=== PATIENT | male | born 1955 | race Caucasian/White ===

== ENCOUNTER 2022-08-09 23:25 | Observation (INO) | payer MEDICARE, OTHER ==
[2022-08-09] MEDS ORDERED: SODIUM CHLORIDE 0.9% 500 ML 500 ML IV STA (23:45)
[2022-08-09] MEDS ORDERED: MORPHINE SULFATE 4 MG/ML SYRINGE IV STA (23:45)
[2022-08-09] MEDS ORDERED: ONDANSETRON 4 MG/2 ML VIAL IVP STA (23:45)
[2022-08-09] MEDS ORDERED: ONDANSETRON 4 MG/2 ML VIAL IVP PRN (23:45)
[2022-08-09] MEDS ORDERED: NALOXONE 0.4 MG/ML 1 ML VIAL IV PRN (23:45)
[2022-08-09] MEDS ORDERED: SODIUM CHLORIDE 0.9% 1,000 ML IV STA (23:45)
--- NOTE | 2022-08-09 23:45 | ED ---
Recheck HPI - General Chief Complaint: Fall Stated Complaint: Fractured Vertabrae Time Seen by Provider: 08/09/22 23:30 Source: patient, EMS, RN notes reviewed, old records reviewed Mode of arrival: EMS - History of Present Illness Initial Comments: This is a 66-year-old male presenting in transfer patient. Patient accepted in transfer for back pain chronic back pain with multiple recent visits for back pain. Patient did have imaging on this visit and found to have fracture thoracic spine fracture. Patient also has underlying concern for CVA with metastasis and likely cancer pain. MD Complaint: medication refill request, other (Pain control back pain) -: week(s) Returns Today for: persistent/worsening pain related to initial visit Symptoms Since Prior Visit: worsening pain Associated Symptoms: shortness of breath, malaise, nausea Treatments Prior to Arrival: Given Pain Meds on - Related Data Allergies Allergy/AdvReac Type Severity Reaction Status Date / Time No Known Allergies Allergy Verified 08/09/22 23:42 Review of Systems ROS Statement: Those systems with pertinent positive or pertinent negative responses have been documented in the HPI. ROS Other: All systems not noted in ROS Statement are negative. Past Medical History History of Any Multi-Drug Resistant Organisms: None Reported Past Psychological History: No Psychological Hx Reported Smoking Status: Current every day smoker Past Alcohol Use History: None Reported Past Drug Use History: None Reported General Exam General appearance: alert, in no apparent distress Head exam: Present: atraumatic, normocephalic, normal inspection Eye exam: Present: normal appearance, PERRL, EOMI. Absent: scleral icterus, conjunctival injection, periorbital swelling ENT exam: Present: normal exam, mucous membranes moist Neck exam: Present: normal inspection. Absent: tenderness, meningismus, lymphadenopathy Respiratory exam: Present: normal lung sounds bilaterally. Absent: respiratory distress, wheezes, rales, rhonchi, stridor Cardiovascular Exam: Present: regular rate, normal rhythm, normal heart sounds. Absent: systolic murmur, diastolic murmur, rubs, gallop, clicks GI/Abdominal exam: Present: soft, normal bowel sounds. Absent: distended, tenderness, guarding, rebound, rigid Extremities exam: Present: normal inspection, full ROM, normal capillary refill. Absent: tenderness, pedal edema, joint swelling, calf tenderness Back exam: Present: normal inspection Neurological exam: Present: alert, oriented X3, CN II-XII intact Psychiatric exam: Present: normal affect, normal mood Skin exam: Present: warm, dry, intact, normal color. Absent: rash Course Vital Signs 08/09/22 23:35 Temperature 97.7 F Pulse Rate 102 H Respiratory 18 Rate Blood Pressure 138/88 O2 Sat by Pulse 94 L Oximetry - Reevaluation(s) Reevaluation #1: 08/09/22 23:43 Medical records reviewed Reevaluation #2: 08/09/22 23:43 Patient's pain is controlled Reevaluation #3: 08/09/22 23:43 Patient informed results and questions answered Reevaluation #4: 08/09/22 23:44 Was pt. sent in by a medical professional or institution? @ -no Did you speak to anyone other than the patient for history? @ -no Did you review nursing and triage notes? @ -agree Were old charts reviewed? @ -no Differential Diagnosis? @ -prior EKG interpreted by me (3pts min.)? @ -yes X-rays interpreted by me (1pt min.)? @ -yes CT interpreted by me (1pt min.)? @ -no U/S interpreted by me (1pt. min.)? @ -no What testing was considered but not performed? (CT, X-rays, U/S, labs)? Why? @ -no What meds were considered but not given? Why? @ -no Did you discuss the management of the patient with other professionals? @ -no Did you reconcile home meds? @ -no Was smoking cessation discussed for >3mins.? @ -no Was critical care preformed (if so, how long)? @ -no Were there social determinants of health that impacted care today? How? (Homelessness, low income, unemployed, alcoholism, drug addiction, transportation, low edu. Level, literacy, decrease access to med. care, fci, rehab)? @ -no Was there de-escalation of care discussed even if they declined? (Discuss DNR or withdrawal of care, Hospice)? @ -no What co-morbidities impacted this encounter? (DM, HTN, Smoking, COPD, CAD, Canc er, CVA, Hep., AIDS, mental health diagnosis, sleep apnea, morbid obesity)? @ -none Was patient admitted / discharged? @ - Undiagnosed new problem with uncertain prognosis? @ -no Drug Therapy requiring intensive monitoring for toxicity (Heparin, Nitro, Insulin, Cardizem)? @ -no Were any procedures done? @ -no Diagnosis/symptom? @ - Acute, or Chronic, or Acute on Chronic? @ -no Uncomplicated (without systemic symptoms) or Complicated (systemic symptoms)? @ -uncomplicated Side effects of treatment? @ -no Exacerbation, Progression, or Severe Exacerbation] @ -no Poses a threat to life or bodily function? @ -yes Disposition Clinical Impression: Fall, Thoracic spine fracture, Back pain, Weakness, Anemia Disposition: ADMITTED IP TO THIS HOSP Condition: Fair Is patient prescribed a controlled substance at d/c from ED?: No Referrals: Jesse Allison MD [Primary Care Provider] - 1-2 days
[2022-08-10] MEDS: SODIUM CHLORIDE 0.9% 1,000 ML IV SCH ×2 (02:14→13:28)
[2022-08-10] MEDS: MORPHINE SULFATE 4 MG/ML SYRINGE IV PRN ×2 (04:24→12:42)
[2022-08-10 06:32] LABS: Basophils % (A) 1 %; Eosinophils % (A) 0 %; HCT 27.1 % (39.0-53.0); Lymphocytes # (A) 1.2 k/uL (1.0-4.8); Lymphocytes % (A) 20 %; MCH 31.6 pg (25.0-35.0); MCHC 33.4 g/dL (31.0-37.0); MCV 94.4 fL (80.0-100.0); Mean Platelet Volume 7.7; Monocytes # (A) 0.4 k/uL (0-1.0); Monocytes % (A) 6 %; Neutrophils # (A) 4.4 k/uL (1.3-7.7); Neutrophils % (A) 72 %; Platelet Count 189 k/uL (150-450); RBC 2.87 m/uL (4.30-5.90); RDW 14.5 % (11.5-15.5); WBC 6.1 k/uL (3.8-10.6)
[2022-08-10 06:52] LABS: ALT 36 U/L (4-49); AST 114 U/L (17-59); African American GFR (CKD) >90 (>60 ml/min/1.73 sqM); Albumin 2.5 g/dL (3.5-5.0); Alkaline Phosphatase 265 U/L (38-126); Anion Gap 4 mmol/L; Blood Urea Nitrogen 19 mg/dL (9-20); Calcium 8.6 mg/dL (8.4-10.2); Carbon Dioxide 30 mmol/L (22-30); Chloride 100 mmol/L (98-107); Glucose 123 mg/dL (74-99); Magnesium 1.8 mg/dL (1.6-2.3); Non-African American GFR(CKD) >90 (>60 ml/min/1.73 sqM); Phosphorus 3.7 mg/dL (2.5-4.5); Potassium 3.9 mmol/L (3.5-5.1); Sodium 134 mmol/L (137-145); Total Bilirubin 0.3 mg/dL (0.2-1.3); Total Protein 5.2 g/dL (6.3-8.2)
[2022-08-10] MEDS: predniSONE 10 MG TAB PO SCH (13:27)
[2022-08-10] MEDS: CHOLECALCIFEROL 125 MCG (5000 IU) TABLET PO SCH (13:28)
[2022-08-10] MEDS: ASPIRIN 81 MG PO SCH (13:28)
[2022-08-10] MEDS: FAMOTIDINE 20 MG TAB PO SCH ×2 (13:28→20:43)
[2022-08-10] MEDS: DIVALPROEX ER 500 MG TAB.ER.24H PO SCH ×2 (13:28→20:43)
[2022-08-10] MEDS: FLUoxetine HCL 20 MG CAP PO SCH (13:28)
--- NOTE | 2022-08-10 13:28 | XR ---
EXAMINATION TYPE: XR thoracic spine 2V DATE OF EXAM: 08/10/2022 CLINICAL HISTORY: pain TECHNIQUE: Frontal, lateral, and swimmer's view of thoracic spine are obtained. COMPARISON: None. FINDINGS: Thoracic spine show satisfactory alignment without evidence of acute fracture or dislocatio n. Vertebral body heights are preserved. Disc spaces demonstrate moderate degenerative disc space na rrowing. Visualized ribs are unremarkable. IMPRESSION: No acute fracture or dislocation is seen in the thoracic spine. ICD 10 NO FRACTURE, INIT IAL EVALUATION
[2022-08-10] MEDS: traMADol 50 MG TAB PO SCH ×3 (13:29→20:41)
--- NOTE | 2022-08-10 14:11 | P.CNOR ---
History of Present Illness - [facility] Consult date: 08/10/22 Consult reason: fracture (Thoracic fracture) History of present illness: The patient is a 66-year-old male who presented to the emergency department at [facility] yesterday as a transfer from an outside hospital. There was a suspicion of a thoracic spine fracture and possible cancer according to the [facility] department physician note. Orthopedics is consulted for further evaluation of his thoracic spine fracture. This morning, the patient states that he has had back pain for at least 2 weeks without any specific injury. He states he has frequent falls. The patient does live in a snf. He denies any numbness or tingling in his legs and denies bowel and bladder issues. Review of Systems Constitutional: Denies chills, Denies fatigue, Denies fever Cardiovascular: Denies chest pain, Denies shortness of breath Respiratory: Denies cough Gastrointestinal: Denies diarrhea, Denies nausea, Denies vomiting Musculoskeletal: Reports as per [facility] Past Medical History Past Medical History: GERD/Reflux, Hyperlipidemia, Hypertension Additional Past Medical History / Comment(s): chronic back pain History of Any Multi-Drug Resistant Organisms: None Reported Past Surgical History: Hernia Repair Past Anesthesia/Blood Transfusion Reactions: No Reported Reaction Past Psychological History: Bipolar, Schizophrenia Smoking Status: Current every day smoker Past Alcohol Use History: None Reported Additional Past Alcohol Use History / Comment(s): 03/25-03/23 PPD Past Drug Use History: None Reported Medications and Allergies Home Medications Medication Instructions Recorded Confirmed Type Ascorbic Acid [Vitamin C] 500 mg PO BID 08/10/22 08/10/22 History Aspirin EC [Ecotrin Low Dose] 81 mg PO DAILY 08/10/22 08/10/22 History Atorvastatin [Lipitor] 40 mg PO HS 08/10/22 08/10/22 History Cholecalciferol [Vitamin D3 (125 125 mcg PO DAILY 08/10/22 08/10/22 History Mcg = 5000 Iu)] Divalproex ER [Depakote ER] 1,000 mg PO BID 08/10/22 08/10/22 History Docusate [Colace] 100 mg PO BID 08/10/22 08/10/22 History FLUoxetine HCL [PROzac] 60 mg PO DAILY 08/10/22 08/10/22 History Famotidine 20 mg PO BID 08/10/22 08/10/22 History Multivitamins, Thera [Multivitamin 1 tab PO DAILY 08/10/22 08/10/22 History (formulary)] OLANZapine ODT [ZyPREXA ZYDIS] 5 mg PO HS 08/10/22 08/10/22 History OLANZapine [ZyPREXA Zydis] 20 mg PO HS 08/10/22 08/10/22 History Primidone [Mysoline] 50 mg PO HS 08/10/22 08/10/22 History amLODIPine [Norvasc] 2.5 mg PO DAILY 08/10/22 08/10/22 History predniSONE 30 mg PO DAILY 08/10/22 08/10/22 History traMADol HCL 50 - 100 mg PO QID 08/10/22 08/10/22 History Allergies Allergy/AdvReac Type Severity Reaction Status Date / Time lisinopril Allergy Swelling Verified 08/10/22 11:10 naproxen Allergy Swelling Verified 08/10/22 11:10 Physical Examination The patient is a 66 y/o male in no acute distress. He is alert and oriented x3. Exam of the back reveals no dimples, patches, lacerations, or abrasions. Mild tenderness to palpation over the midline of the thoracic spine. There is some paravertebral spasm. No pain on internal or external rotation of bilateral hips. Right Lower extremity: Motor strength of the lower extremity is 5/5 including dorsiflexion, plantar flexion, extensor hallucis longus, hip flexion, knee extension abduction and adduction. Left Lower extremity: Motor strength of the lower extremity is 5/5 including dorsiflexion, plantar flexion, extensor hallucis longus, hip flexion, knee extension abduction and adduction. Results X-rays of the thoracic spine reveal a mild compression fracture to either T9 or T10. Outside CT of the pelvis does not include T9 or T10. - Labs Labs: Abnormal Lab Results - Last 24 Hours (Table) 08/10/22 08/10/22 Range/Units 06:19 06:19 RBC 2.87 L (4.30-5.90) m/uL Hgb 9.0 L (13.0-17.5) gm/dL Hct 27.1 L (39.0-53.0) % Sodium 134 L (137-145) mmol/L Creatinine 0.56 L (0.66-1.25) mg/dL Glucose 123 H (74-99) mg/dL AST 114 H (17-59) U/L Alkaline Phosphatase 265 H (38-126) U/L Total Protein 5.2 L (6.3-8.2) g/dL Albumin 2.5 L (3.5-5.0) g/dL H & H 08/10/22 Range/Units 06:19 Hgb 9.0 L (13.0-17.5) gm/dL Hct 27.1 L (39.0-53.0) % Result Diagrams: 08/10/22 06:19 08/10/22 06:19 Assessment and Plan (1) Back pain Current Visit: Yes Status: Acute Code(s): M54.9 - DORSALGIA, UNSPECIFIED SNOMED Code(s): 449707976 (2) Fall Current Visit: Yes Status: Acute Code(s): W19.XXXA - UNSPECIFIED FALL, I NITIAL ENCOUNTER SNOMED Code(s): 6046232 (3) Thoracic spine fracture Current Visit: Yes Status: Acute Code(s): S22.009A - UNSP FRACTURE OF UNSP THORACIC VERTEBRA, INIT FOR CLOS FX SNOMED Code(s): 470885946 (4) Weakness Current Visit: Yes Status: Acute Code(s): R53.1 - WEAKNESS SNOMED Code(s): 90274024 Plan: The clinical findings were discussed with the patient. The case and imaging were discussed with Dr. Jaime. No surgical intervention is needed at this time. A TLSO brace will be ordered to aid in pain relief and to increase mobility of the patient due to the T9/10 compression fracture. PT and OT to assess the patient ideally after the brace arrives. Internal medicine to manage multiple medical issues and assess for possible malignancy. No obvious signs of malignancy in the x-ray or CT findings in regards to the spine. He may follow up with Dr. Webb for further management of his compression fracture. We will sign off at this time.
--- NOTE | 2022-08-10 17:58 | P.HPIM ---
History of Present Illness H&P Date: 08/10/22 Chief Complaint: Back pain This is a pleasant 66-year-old patient, follows with visiting physicians Dr. Allison. Patient is resident of a custodial. Chronic stable medical conditions include GERD, hyperlipidemia, hypertension. Schizophrenia, bipolar. Smoker. Patient states for 2 weeks he has been having pain in the lower back. He has been following off and on. Apparently before 2 weeks he didn't have much trouble walking. Some low back pain. Patient presented to [facility]. Computed tomography scan showed a T9 vertebral fracture. Therefore patient was sent down here. Appetite is fair. No change in bowel pattern. No fever no chills Review of systems: GEN.: Tired EYES: None HEENT: None NECK: None RESPIRATORY: K she'll call CARDIOVASCULAR: None GASTROINTESTINAL: None GENITOURINARY: None MUSCULOSKELETAL: Back pain LYMPHATICS: None HEMATOLOGICAL: None PSYCHIATRY: None NEUROLOGICAL: Weakness in the legs trouble walking Past medical history to include: GERD, hypertension, hyperlipidemia, back pain, bipolar, schizophrenia Social history: No alcohol. Smokes quarter to half a pack a day. Lives in a custodial Physical examination: VITAL SIGNS: 97.5, 1 or 2, 18, 138/88, 94% room air GENERAL: BMI 24.3, laying in bed awake not in distress. EYES: Pupils equal. Conjunctiva normal. HEENT: External appearance of nose and ears normal, oral cavity grossly normal. NECK: JVD not raised; masses not palpable. HEART: First and second heart sounds are normal; no edema. LUNGS: Respiratory rate normal; clear to auscultation. ABDOMEN: Soft, nontender, liver spleen not palpable, no masses palpable. PSYCH: Alert and oriented x3; mood and affect normal. MUSCULOSKELETAL:No Clubbing/cyanosis;muscles-grossly intact. Able to raise both legs to about 45. NEUROLOGICAL: Cranial nerves grossly intact; no facial asymmetry, power and sensation grossly intact. Reflexes in both the knees symmetrical. LYMPHATICS: No lymph nodes palpable in the axilla and neck INVESTIGATIONS, reviewed in the clinical context: White count 6.1 hemoglobin 9 platelets 189 potassium 3.9 creatinine 0.56 alkaline phosphatase 265 albumin 2.5 Thoracic spine: No fractures reported Investigations from [facility]: Computed tomography scan thoracolumbar spine: T9 vertebral fracture. Assessment plan: -Acute T9 vertebral fracture possibly secondary to fall Consultation orthopedics. We will consult neurology to rule out any other causes of fall. Check orthostatic -Normocytic anemia Check iron studies, B12, folate. -Depression Prozac -GERD Pepcid -Essential hypertension Amlodipine hold for now -Hyperlipidemia Lipitor -Schizophrenia and bipolar Olanzapine, Depakote -Chronic nicotine dependence, cigarettes smoker Nicotine patch Past Medical History Past Medical History: GERD/Reflux, Hyperlipidemia, Hypertension Additional Past Medical History / Comment(s): chronic back pain History of Any Multi-Drug Resistant Organisms: None Reported Past Surgical History: Hernia Repair Past Anesthesia/Blood Transfusion Reactions: No Reported Reaction Past Psychological History: Bipolar, Schizophrenia Smoking Status: Current every day smoker Past Alcohol Use History: None Reported Additional Past Alcohol Use History / Comment(s): 03/25-03/23 PPD Past Drug Use History: None Reported Medications and Allergies Home Medications Medication Instructions Recorded Confirmed Type Ascorbic Acid [Vitamin C] 500 mg PO BID 08/10/22 08/10/22 History Aspirin EC [Ecotrin Low Dose] 81 mg PO DAILY 08/10/22 08/10/22 History Atorvastatin [Lipitor] 40 mg PO HS 08/10/22 08/10/22 History Cholecalciferol [Vitamin D3 (125 125 mcg PO DAILY 08/10/22 08/10/22 History Mcg = 5000 Iu)] Divalproex ER [Depakote ER] 1,000 mg PO BID 08/10/22 08/10/22 History Docusate [Colace] 100 mg PO BID 08/10/22 08/10/22 History FLUoxetine HCL [PROzac] 60 mg PO DAILY 08/10/22 08/10/22 History Famotidine 20 mg PO BID 08/10/22 08/10/22 History Multivitamins, Thera [Multivitamin 1 tab PO DAILY 08/10/22 08/10/22 History (formulary)] OLANZapine ODT [ZyPREXA ZYDIS] 5 mg PO HS 08/10/22 08/10/22 History OLANZapine [ZyPREXA Zydis] 20 mg PO HS 08/10/22 08/10/22 History Primidone [Mysoline] 50 mg PO HS 08/10/22 08/10/22 History amLODIPine [Norvasc] 2.5 mg PO DAILY 08/10/22 08/10/22 History predniSONE 30 mg PO DAILY 08/10/22 08/10/22 History traMADol HCL 50 - 100 mg PO QID 08/10/22 08/10/22 History Allergies Allergy/AdvReac Type Severity Reaction Status Date / Time lisinopril Allergy Swelling Verified 08/10/22 11:10 naproxen Allergy Swelling Verified 08/10/22 11:10 Physical Exam Vitals: Vital Signs Temp Pulse Pulse Resp BP BP Pulse Ox 08/10/22 07:30 97.7 F 113 H 16 112/74 97 08/10/22 02:00 98.7 F 107 H 20 124/79 94 L 08/09/22 23:35 97.7 F 102 H 18 138/88 94 L Intake and Output 08/09/22 08/10/22 08/10/22 22:59 06:59 14:59 Intake Total 1040 Output Total 200 Balance 840 Intake: Intake, IV Titration 600 Amount Sodium Chloride 0.9% 1, 600 000 ml @ 75 mls/hr IV . [id number] TISH Rx#:[id number] Oral 440 Output: Urine 200 Other: # Voids 1 Weight 72.575 kg Results CBC & Chem 7: 08/10/22 06:19 08/10/22 06:19 Labs: Abnormal Lab Results - Last 24 Hours (Table) 08/10/22 08/10/22 Range/Units 06:19 06:19 RBC 2.87 L (4.30-5.90) m/uL Hgb 9.0 L (13.0-17.5) gm/dL Hct 27.1 L (39.0-53.0) % Sodium 134 L (137-145) mmol/L Creatinine 0.56 L (0.66-1.25) mg/dL Glucose 123 H (74-99) mg/dL AST 114 H (17-59) U/L Alkaline Phosphatase 265 H (38-126) U/L Total Protein 5.2 L (6.3-8.2) g/dL Albumin 2.5 L (3.5-5.0) g/dL Thrombosis Risk Factor Assmnt - Choose All That Apply Any of the Below Risk Factors Present?: Yes Other Risk Factors: Yes Each Risk Factor Represents 2 Points: Age 61-74 years Other congenital or acquired thrombophilia - If yes, enter type in comment: No Thrombosis Risk Factor Assessment Total Risk Factor Score: 2 Thrombosis Risk Factor Assessment Level: Low Risk
[2022-08-10] MEDS: NICOTINE 14MG/24HR PATCH TRANSDERM SCH (18:28)
[2022-08-10] MEDS: ENOXAPARIN 40 MG/0.4 ML SYRINGE SQ SCH (18:28)
[2022-08-10] MEDS: ASCORBIC ACID 500 MG TAB PO SCH (20:41)
[2022-08-10] MEDS ORDERED: ATORVASTATIN 40 MG TAB PO SCH (21:00)
[2022-08-10] MEDS ORDERED: OLANZapine ODT 10 MG TAB PO SCH (21:00)
[2022-08-10] MEDS ORDERED: OLANZapine ODT 5 MG TAB PO SCH (21:00)
[2022-08-10] MEDS ORDERED: PRIMIDONE 50 MG TAB PO SCH (21:00)
[2022-08-11 03:10] LABS: % Iron Saturation 37.29 (15.00-50.00)
[2022-08-11] MEDS: CHOLECALCIFEROL 125 MCG (5000 IU) TABLET PO SCH (08:48)
[2022-08-11] MEDS: ASCORBIC ACID 500 MG TAB PO SCH (08:48)
[2022-08-11] MEDS: ENOXAPARIN 40 MG/0.4 ML SYRINGE SQ SCH (08:48)
[2022-08-11] MEDS: NICOTINE 14MG/24HR PATCH TRANSDERM SCH (08:48)
[2022-08-11] MEDS: ASPIRIN 81 MG PO SCH (08:48)
[2022-08-11] MEDS: traMADol 50 MG TAB PO SCH ×2 (08:48→12:43)
[2022-08-11] MEDS: FAMOTIDINE 20 MG TAB PO SCH (08:49)
[2022-08-11] MEDS: DIVALPROEX ER 500 MG TAB.ER.24H PO SCH (08:49)
[2022-08-11] MEDS: predniSONE 10 MG TAB PO SCH (08:49)
[2022-08-11] MEDS: FLUoxetine HCL 20 MG CAP PO SCH (08:51)
[2022-08-11] MEDS ORDERED: MULTIVITAMINS, THERA 1 EACH TAB PO SCH (09:00)
[2022-08-11 12:12] VITALS: BP 121/67; PULSE 108; RESP 20; TEMP 97.9
--- NOTE | 2022-08-11 20:33 | P.DS ---
Providers Date of admission: 08/10/22 00:52 Expected date of discharge: 08/11/22 Attending physician: Alonso Trejo Consults: 08/09/22 23:45 Consult Physician Routine Consulting Provider: Lavern Jaime Consult Reason/Comments: TspineFx Do you want consulting provider notified?: Yes Primary care physician: Jesse [facility] Course: Chief Complaint: Back pain This is a pleasant 66-year-old patient, follows with visiting physicians Dr. Allison. Patient is resident of a senior living. Chronic stable medical conditions include GERD, hyperlipidemia, hypertension. Schizophrenia, bipolar. Smoker. Patient states for 2 weeks he has been having pain in the lower back. He has been following off and on. Apparently before 2 weeks he didn't have much tro uble walking. Some low back pain. Patient presented to [facility]. Computed tomography scan showed a T9 vertebral fracture. Therefore patient was sent down here. Appetite is fair. No change in bowel pattern. No fever no chills August 11: Patient doing much better today. Spoke to the nurse. The patient. Patient did walk well to the bathroom. Pain better control. Cleared by orthopedics to be discharged and follow-up with office. Does have a brace. Making urine. Past medical history to include: GERD, hypertension, hyperlipidemia, back pain, bipolar, schizophrenia Social history: No alcohol. Smokes quarter to half a pack a day. Lives in a senior living Physical examination: VITAL SIGNS: 98.6, 107, 18, 1 25 x 74, 92% room air GENERAL: BMI 24.3, declining, comfortable EYES: Pupils equal. Conjunctiva normal. HEENT: External appearance of nose and ears normal, oral cavity grossly normal. NECK: JVD not raised; masses not palpable. HEART: First and second heart sounds are normal; no edema. LUNGS: Respiratory rate normal; clear to auscultation. ABDOMEN: Soft, nontender, liver spleen not palpable, no masses palpable. PSYCH: Alert and oriented x3; mood and affect normal. MUSCULOSKELETAL:No Clubbing/cyanosis;muscles-grossly intact. Able to raise both legs to about 45. INVESTIGATIONS, reviewed in the clinical context: Iron 71 TIBC 190 transferred and 136 ferritin 3567 B12 809 folate 8.1 White count 6.1 hemoglobin 9 platelets 189 potassium 3.9 creatinine 0.56 alkaline phosphatase 265 albumin 2.5 Thoracic spine: No fractures reported Investigations from [facility]: Computed tomography scan thoracolumbar spine: T9 vertebral fracture. Assessment plan: -Acute T9 vertebral fracture possibly secondary to fall: Patient now doing well Consultation orthopedics.-Brace ordered. -Normocytic anemia of chronic disease Normal : iron studies, B12, folate. -Depression Prozac -GERD Pepcid -Essential hypertension Amlodipine-hold -Hyperlipidemia Lipitor -Schizophrenia and bipolar Olanzapine, Depakote -Chronic nicotine dependence, cigarettes smoker Nicotine patch Disposition: Home Plan - Discharge Summary Discharge Rx Participant: No New Discharge Prescriptions: New Nicotine 14Mg/24Hr Patch [Habitrol] 1 patch TRANSDERM DAILY #14 patch Continue Ascorbic Acid [Vitamin C] 500 mg PO BID Aspirin EC [Ecotrin Low Dose] 81 mg PO DAILY Atorvastatin [Lipitor] 40 mg PO HS Divalproex ER [Depakote ER] 1,000 mg PO BID Multivitamins, Thera [Multivitamin (formulary)] 1 tab PO DAILY OLANZapine [ZyPREXA Zydis] 20 mg PO HS predniSONE 30 mg PO DAILY Cholecalciferol [Vitamin D3 (125 Mcg = 5000 Iu)] 125 mcg PO DAILY Famotidine 20 mg PO BID FLUoxetine HCL [PROzac] 60 mg PO DAILY OLANZapine ODT [ZyPREXA Zydis] 5 mg PO HS Primidone [Mysoline] 50 mg PO HS traMADol HCL 50 - 100 mg PO QID Discontinued Docusate [Colace] 100 mg PO BID No Action amLODIPine [Norvasc] 2.5 mg PO DAILY Discharge Medication List Ascorbic Acid [Vitamin C] 500 mg PO BID 08/10/22 [History] Aspirin EC [Ecotrin Low Dose] 81 mg PO DAILY 08/10/22 [History] Atorvastatin [Lipitor] 40 mg PO HS 08/10/22 [History] Cholecalciferol [Vitamin D3 (125 Mcg = 5000 Iu)] 125 mcg PO DAILY 08/10/22 [History] Divalproex ER [Depakote ER] 1,000 mg PO BID 08/10/22 [History] FLUoxetine HCL [PROzac] 60 mg PO DAILY 08/10/22 [History] Famotidine 20 mg PO BID 08/10/22 [History] Multivitamins, Thera [Multivitamin (formulary)] 1 tab PO DAILY 08/10/22 [History] OLANZapine ODT [ZyPREXA Zydis] 5 mg PO HS 08/10/22 [History] OLANZapine [ZyPREXA Zydis] 20 mg PO HS 08/10/22 [History] Primidone [Mysoline] 50 mg PO HS 08/10/22 [History] amLODIPine [Norvasc] 2.5 mg PO DAILY 08/10/22 [History] predniSONE 30 mg PO DAILY 08/10/22 [History] traMADol HCL 50 - 100 mg PO QID 08/10/22 [History] Nicotine 14Mg/24Hr Patch [Habitrol] 1 patch TRANSDERM DAILY #14 patch 08/11/22 [Rx] Follow up Appointment(s)/Referral(s): Jessica Webb DO [Doctor of Osteopathic Medicine] - 08/25/22 2:30 pm (You will see Berhane Heredia.) Jesse Allison MD [Primary Care Provider] - 1-2 days (The office will all you with a time and date.) Activity/Diet/Wound Care/Special Instructions: TLSO brace when out of bed for comfort. No twisting of the back or heavy lifting Discharge Disposition: HOME SELF-CARE
== END 2022-08-11 17:46 | disposition home or self-care (01) ==
LOC: EC 23:25 → EEVIPCON 23:25 → 5NMEDONC 08-10 00:52
PROVIDERS: ADMIT Hospitalist; ATTEND Hospitalist
DX: S22.078A Other fracture of T9-T10 vertebra, initial encounter for closed fracture (principal); R53.1 Weakness; F17.210 Nicotine dependence, cigarettes, uncomplicated; D64.9 Anemia, unspecified; K21.9 Gastro-esophageal reflux disease without esophagitis; E78.5 Hyperlipidemia, unspecified; I10 Essential (primary) hypertension; F20.9 Schizophrenia, unspecified; F31.9 Bipolar disorder, unspecified; F32.A Depression, unspecified; Z79.82 Long term (current) use of aspirin; Z79.899 Other long term (current) drug therapy; Z88.8 Allergy status to other drugs, medicaments and biological substances; Z88.6 Allergy status to analgesic agent; W19.XXXA Unspecified fall, initial encounter
CPT/HCPCS: 96376; 96361 ×4; 96372 ×2; 96360; 96374; 96375; 99285; 97162; 97166; 80053; 82607; 82728; 82746; 83540; 83550; 83735; 84100; 85025; 72070; G0378 ×2; S4990 ×2; J2270; J2405; J1650 ×2; J7512 ×2

== ENCOUNTER 2022-08-17 20:47 | Inpatient (IN) | payer MEDICARE, OTHER ==
[2022-08-17 21:52] LABS: Basophils % (A) 1 %; Eosinophils % (A) 0 %; HCT 22.2 % (39.0-53.0); Lymphocytes # (A) 0.9 k/uL (1.0-4.8); Lymphocytes % (A) 21 %; MCH 30.6 pg (25.0-35.0); MCHC 33.1 g/dL (31.0-37.0); MCV 92.4 fL (80.0-100.0); Mean Platelet Volume 7.7; Monocytes # (A) 0.2 k/uL (0-1.0); Monocytes % (A) 5 %; Neutrophils % (A) 71 %; Platelet Count 146 k/uL (150-450); RBC 2.41 m/uL (4.30-5.90); RDW 15.1 % (11.5-15.5); WBC 4.2 k/uL (3.8-10.6)
[2022-08-17 21:53] LABS: HGB 7.4 gm/dL (13.0-17.5)
[2022-08-17 22:02] LABS: ALT 44 U/L (4-49); AST 197 U/L (17-59); African American GFR (CKD) >90 (>60 ml/min/1.73 sqM); Albumin 2.4 g/dL (3.5-5.0); Alkaline Phosphatase 362 U/L (38-126); Anion Gap 6 mmol/L; Blood Urea Nitrogen 34 mg/dL (9-20); Calcium 8.1 mg/dL (8.4-10.2); Carbon Dioxide 28 mmol/L (22-30); Chloride 105 mmol/L (98-107); Glucose 127 mg/dL (74-99); Lipase 204 U/L (23-300); Magnesium 2.3 mg/dL (1.6-2.3); Non-African American GFR(CKD) >90 (>60 ml/min/1.73 sqM); Potassium 3.9 mmol/L (3.5-5.1); Sodium 139 mmol/L (137-145); Total Bilirubin 0.5 mg/dL (0.2-1.3); Total Protein 5.4 g/dL (6.3-8.2)
--- NOTE | 2022-08-17 23:09 | CT ---
EXAM: CT Head Without Intravenous Contrast CLINICAL HISTORY: Trauma TECHNIQUE: Axial computed tomography images of the head/brain without intravenous contrast. CTDI is 27.8 mGy and DLP is 695.5 mGy-cm. This CT exam was performed using one or more of the following dose reduction techniques: automated exposure control, adjustment of the mA and/or kV according to patient size, and/or use of iterative reconstruction technique. COMPARISON: No relevant prior studies available. FINDINGS: Brain: No acute hemorrhage or abnormal extra-axial fluid collection. No acute stroke. Mild supratentorial periventricular and subcortical white matter changes. Age-appropriate generalized atrophy. Ventricles: No hydrocephalus. No midline shift. Bones/joints: Unremarkable. No acute fracture. Soft tissues: Unremarkable. Sinuses: Unremarkable as visualized. No acute sinusitis. IMPRESSION: No acute post-traumatic intracranial abnormality. . EXAM: CT Cervical Spine Without Intravenous Contrast CLINICAL HISTORY: ITS.REASON CT Reason: Trauma TECHNIQUE: Axial computed tomography images of the cervical spine without intravenous contrast. CTDI is 27.8 mGy and DLP is 695.5 mGy-cm. This CT exam was performed using one or more of the following dose reduction techniques: automated exposure control, adjustment of the mA and/or kV according to patient size, and/or use of iterative reconstruction technique. COMPARISON: No relevant prior studies available. FINDINGS: Vertebrae: No acute fracture. Maintenance of height of the vertebral bodies. No subluxation. Discs/spinal canal/neural foramina: Minimal degenerative. Soft tissues: Prevertebral soft tissues obscured by presence of a orogastric and orotracheal tube.. . Pleural space: Right greater than left pleural effusions. Tubes, lines and devices: Endotracheal tube tip above the alvaro. Orogastric tube tip below left hemidiaphragm. IMPRESSION: No acute cervical spine post-traumatic abnormality. Right. Left pleural
[2022-08-18] MEDS ORDERED: NALOXONE 0.4 MG/ML 1 ML VIAL IV PRN (00:02)
--- NOTE | 2022-08-18 00:16 | ED ---
General Adult HPI - General Chief complaint: Shortness of Breath Stated complaint: SERITONIN ISSUE Time Seen by Provider: 08/17/22 20:59 Source: EMS, RN notes reviewed Mode of arrival: EMS Limitations: altered mental status - History of Present Illness Initial comments: This is a 67-year-old male that was brought into the emergency Department as a transfer patient from [facility]. It was reported the patient had presented to the outside facility earlier in the day after a trauma to the head. Scans were performed and were negative therefore the patient was sent back to his [facility] home. The patient was then brought back to the outside facility where he had altered mental status. During that visit, the patient became altered after receiving other medications and was intubated for airway protection. There was questions about possible serotonin syndrome and due to the patient's intubated status and possible serotonin syndrome, he was transferred here for further workup and evaluation. On arrival, the patient was intubated and sedated. The patient did have minor trauma to the face but did not have any signs of acute distress. No further history could be obtained at this time due to the patient's intubated status. - Related Data Home Medications Medication Instructions Recorded Confirmed Ascorbic Acid [Vitamin C] 500 mg PO BID 08/10/22 08/17/22 Aspirin EC [Ecotrin Low Dose] 81 mg PO DAILY 08/10/22 08/17/22 Atorvastatin [Lipitor] 40 mg PO HS 08/10/22 08/17/22 Cholecalciferol [Vitamin D3 (125 125 mcg PO DAILY 08/10/22 08/17/22 Mcg = 5000 Iu)] Divalproex ER [Depakote ER] 1,000 mg PO BID 08/10/22 08/17/22 FLUoxetine HCL [PROzac] 60 mg PO DAILY 08/10/22 08/17/22 Famotidine 20 mg PO BID 08/10/22 08/17/22 Multivitamins, Thera [Multivitamin 1 tab PO DAILY 08/10/22 08/17/22 (formulary)] OLANZapine ODT [ZyPREXA Zydis] 5 mg PO HS 08/10/22 08/17/22 OLANZapine [ZyPREXA Zydis] 20 mg PO HS 08/10/22 08/17/22 Primidone [Mysoline] 50 mg PO HS 08/10/22 08/17/22 amLODIPine [Norvasc] 2.5 mg PO DAILY 08/10/22 08/17/22 predniSONE 30 mg PO DAILY 08/10/22 08/17/22 Nicotine 14Mg/24Hr Patch [Habitrol] 1 patch TRANSDERM DAILY PRN 08/17/22 08/17/22 Allergies Allergy/AdvReac Type Severity Reaction Status Date / Time lisinopril Allergy Swelling Verified 08/17/22 21:41 naproxen Allergy Swelling Verified 08/17/22 21:41 Review of Systems ROS Statement: Those systems with pertinent positive or pertinent negative responses have been documented in the HPI. ROS Other: All systems not noted in ROS Statement are negative. Past Medical History Past Medical History: GERD/Reflux, Hyperlipidemia, Hypertension Additional Past Medical History / Comment(s): chronic back pain History of Any Multi-Drug Resistant Organisms: None Reported Past Surgical History: Hernia Repair Past Anesthesia/Blood Transfusion Reactions: No Reported Reaction Past Psychological History: Bipolar, Schizophrenia Smoking Status: Current every day smoker Past Alcohol Use History: None Reported Past Drug Use History: None Reported General Exam Limitations: altered mental status (Intubated and sedated), physical limitation (Intubated and sedated) General appearance: other (Intubated and sedated) Head exam: Present: normocephalic, other (Abrasions noted to the anterior middle face, bridge of the nose) Eye exam: Present: normal appearance Pupils: Present: normal accommodation ENT exam: Present: other (Intubated) Neck exam: Present: normal inspection, full ROM Respiratory exam: Present: normal lung sounds bilaterally, other (Intubated). Absent: respiratory distress, wheezes, rhonchi Cardiovascular Exam: Present: regular rate, normal rhythm, normal heart sounds GI/Abdominal exam: Present: soft, normal bowel sounds Extremities exam: Present: normal inspection, full ROM Back exam: Present: normal inspection, full ROM Neurological exam: Present: other (Intubated and sedated) Psychiatric exam: Present: other (Intubated and sedated) Skin exam: Present: warm, dry Course Vital Signs 08/17/22 08/17/22 08/17/22 20:59 22:41 23:02 Temperature 97.8 F 97.8 F Pulse Rate 109 H 97 97 Respiratory 14 16 16 Rate Blood Pressure 134/82 98/69 101/67 O2 Sat by Pulse 94 L 99 98 Oximetry EKG Findings - EKG Comments: EKG Findings:: An EKG was obtained and was interpreted by myself showing a rate of 107, IN intervals 142, QRS duration of 85. This EKG showed a sinus tachycardia with no ST segment elevation or depression noted. Medical Decision Making - Medical Decision Making Was pt. sent in by a medical professional or institution (, ANAND, BEE BREEDER, urgent ca re, hospital, or retirement...) When possible be specific @ -Yes, the patient was sent by [facility] emergency department Did you speak to anyone other than the patient for history (EMS, parent, family, police, friend...)? What history was obtained from this source @ -Yes, EMS who confirmed that the patient was intubated and sedated however was unsure of the events that led to the intubation. Did you review nursing and triage notes (agree or disagree)? Why? @ -I reviewed and agree with nursing and triage notes Were old charts reviewed (outside hosp., previous admission, EMS record, old EKG, old radiological studies, urgent care reports/EKG's, retirement records)? Report findings @ -Yes, previous ER visit and transfer documents from [facility] emergency Department were reviewed Differential Diagnosis (chest pain, altered mental status, abdominal pain women, abdominal pain men, vaginal bleeding, weakness, fever, dyspnea, syncope, he adache, dizziness, GI bleed, back pain, seizure, CVA, palpatations, mental health)? @ -Intracranial hemorrhage, ventilator dependent respiratory failure, iatrogenic medication overdose EKG interpreted by me (3pts min.). @ -As above X-rays interpreted by me (1pt min.). @ -None done CT interpreted by me (1pt min.). @ -CT of the head and CT C-spine were obtained and were interpreted by myself showing no acute intracranial process. U/S interpreted by me (1pt. min.). @ -None done What testing was considered but not performed or refused? (CT, X-rays, U/S, labs)? Why? @ -None What meds were considered but not given or refused? Why? @ -None Did you discuss the management of the patient with other professionals (professionals i.e. , ANAND, BEE BREEDER, lab, RT, psych nurse, vp digital marketing social media and crm, grain elevator agent, teacher, sheriff officer, case picker)? Give summary @ -Yes, admitting team as well as ICU BEE BREEDER were contacted regarding admission for the patient. Was smoking cessation discussed for >3mins.? @ -No Was critical care preformed (if so, how long)? @ -Yes, see above Were there social determinants of health that impacted care today? How? (Homelessness, low income, unemployed, alcoholism, drug addiction, transportation, low edu. Level, literacy, decrease access to med. care, group home, rehab)? @ -No Was there de-escalation of care discussed even if they declined (Discuss DNR or withdrawal of care, Hospice)? DNR status @ -No What co-morbidities impacted this encounter? (DM, HTN, Smoking, COPD, CAD, Cancer, CVA, ARF, Chemo, Hep., AIDS, mental health diagnosis, sleep apnea, morbid obesity)? @ -None Was patient admitted / discharged? Hospital course, mention meds given and route, prescriptions, significant lab abnormalities, going to OR and other pertinent info. @ -The patient was seen and evaluated in the emergency department. Physical exam demonstrated the patient was intubated and sedated with normal vital signs. The patient did have repeat CT head and CT C-spine as the patient did have trauma to the head and had altered mental status. Scans were negative. There were no signs of serotonin syndrome therefore further workup for this was not continued. There was no fever, clonus nor any vital sign abnormalities. Laboratory workup was also within normal limits and negative. The patient's hemoglobin was decreased from his previous however there were no signs of active bleeding. The patient remained intubated and sedated and due to the patient's status, will be admitted to the ICU for further workup and evaluation. The ICU BEE BREEDER was contacted and did agree to this admission. The patient was admitted in stable condition. Undiagnosed new problem with uncertain prognosis? @ -No Drug Therapy requiring intensive monitoring for toxicity (Heparin, Nitro, Insulin, Cardizem)? @ -No Were any procedures done? @ -No Diagnosis/symptom? @ -Ventilator dependent respiratory failure, altered mental status Acute, or Chronic, or Acute on Chronic? @ -Acute Uncomplicated (without systemic symptoms) or Complicated (systemic symptoms)? @ -Complicated Side effects of treatment? @ -No Exacerbation, Progression, or Severe Exacerbation? @ -No Poses a threat to life or bodily function? How? (Chest pain, USA, ME, pneumonia, PE, COPD, DKA, ARF, appy, cholecystitis, CVA, Diverticulitis, Homicidal, Suicidal, threat to staff... and all critical care pts) @ -Yes, continued respiratory failure can lead to permanent damage and possible . - Lab Data Result diagrams: 08/17/22 21:08/17/22 21: Lab Results 08/17/22 08/17/22 Range/Units 21: 21:29 WBC 4.2 (3.8-10.6) k/uL RBC 2.41 L (4.30-5.90) m/uL Hgb 7.4 L D (13.0-17.5) gm/dL Hct 22.2 L (39.0-53.0) % MCV 92.4 (80.0-100.0) fL MCH 30.6 (25.0-35.0) pg MCHC 33.1 (31.0-37.0) g/dL RDW 15.1 (11.5-15.5) % Plt Count 146 L (150-450) k/uL MPV 7.7 Neutrophils % 71 % Lymphocytes % 21 % Monocytes % 5 % Eosinophils % 0 % Basophils % 1 % Neutrophils # 3.0 (1.3-7.7) k/uL Lymphocytes # 0.9 L (1.0-4.8) k/uL Monocytes # 0.2 (0-1.0) k/uL Eosinophils # 0.0 (0-0.7) k/uL Basophils # 0.0 (0-0.2) k/uL Manual Slide Review Performed Sodium 139 (137-145) mmol/L Potassium 3.9 (3.5-5.1) mmol/L Chloride 105 (98-107) mmol/L Carbon Dioxide 28 (22-30) mmol/L Anion Gap 6 mmol/L BUN 34 H (9-20) mg/dL Creatinine 0.78 (0.66-1.25) mg/dL Est GFR (CKD-EPI)AfAm >90 (>60 ml/min/1.73 sqM) Est GFR (CKD-EPI)NonAf >90 (>60 ml/min/1.73 sqM) Glucose 127 H (74-99) mg/dL Calcium 8.1 L (8.4-10.2) mg/dL Magnesium 2.3 (1.6-2.3) mg/dL Total Bilirubin 0.5 (0.2-1.3) mg/dL AST 197 H (17-59) U/L ALT 44 (4-49) U/L Alkaline Phosphatase 362 H (38-126) U/L Total Protein 5.4 L (6.3-8.2) g/dL Albumin 2.4 L (3.5-5.0) g/dL Lipase 204 (23-300) U/L Critical Care Time Critical Care Time: Yes Total Critical Care Time: 35 Disposition Clinical Impression: AMS (altered mental status), Respiratory failure requiring intubation Disposition: ADMITTED IP TO THIS [facility] Condition: Stable Is patient prescribed a controlled substance at d/c from ED?: No Referrals: None,Stated [Primary Care Provider] - 1-2 days Time of Disposition: 22:00 Decision to Admit Reason: Admit from EC Decision Date: 08/17/22 Decision Time: 22:00
[2022-08-18 01:22] LABS: Basophils % (A) 1 %; Eosinophils % (A) 0 %; HCT 21.3 % (39.0-53.0); HGB 7.1 gm/dL (13.0-17.5); Lymphocytes % (A) 27 %; MCH 31.6 pg (25.0-35.0); MCHC 33.4 g/dL (31.0-37.0); MCV 94.7 fL (80.0-100.0); Mean Platelet Volume 7.6; Monocytes # (A) 0.2 k/uL (0-1.0); Monocytes % (A) 6 %; Neutrophils # (A) 2.4 k/uL (1.3-7.7); Neutrophils % (A) 63 %; Platelet Count 162 k/uL (150-450); RBC 2.25 m/uL (4.30-5.90); RDW 14.8 % (11.5-15.5); WBC 3.9 k/uL (3.8-10.6)
[2022-08-18 01:33] LABS: African American GFR (CKD) >90 (>60 ml/min/1.73 sqM); Anion Gap 7 mmol/L; Blood Urea Nitrogen 34 mg/dL (9-20); Calcium 8.4 mg/dL (8.4-10.2); Carbon Dioxide 27 mmol/L (22-30); Chloride 104 mmol/L (98-107); Glucose 123 mg/dL (74-99); Magnesium 2.4 mg/dL (1.6-2.3); Non-African American GFR(CKD) >90 (>60 ml/min/1.73 sqM); Potassium 3.9 mmol/L (3.5-5.1); Sodium 138 mmol/L (137-145)
[2022-08-18 01:49] LABS: Glucose,Whole Blood 223 mg/dL (70-110)
[2022-08-18 02:26] LABS: ABG Base Excess 1.9 mmol/L; ABG HCO3 27 mmol/L (21-25); ABG Oxygen Saturation 97.7 % (94-97); ABG PCO2 43 mmHg (35-45); ABG PO2 98 mmHg (83-108); ABG TCO2 28 mmol/L (19-24); Allen Test Performed? Yes
[2022-08-18] MEDS ORDERED: SODIUM CHLORIDE 0.9% 500 ML 500 ML IV ONE (02:51)
[2022-08-18] MEDS: SODIUM CHLORIDE 0.9% 1,000 ML IV SCH ×2 (03:00→14:45)
--- NOTE | 2022-08-18 03:39 | XR ---
EXAM: XR Chest, 1 View CLINICAL HISTORY: ITS.REASON XR Reason: OG tube placement TECHNIQUE: Frontal view of the chest. COMPARISON: No relevant prior studies available. IMPRESSION: ET tube terminates 6.2 cm from the alvaro. Feeding tube in proper position.
[2022-08-18 03:51] LABS: Appearance,Urine Clear (Clear); Bacteria,Urine Rare /hpf; Bilirubin,Urine Negative (Negative); Blood,Urine Large (Negative); Color,Urine Yellow; Glucose,Urine (UA) Negative (Negative); Ketones,Urine 1+ (Negative); Leukocyte Esterase,Urine Negative (Negative); Mucus,Urine Occasional /hpf; Nitrite,Urine Negative (Negative); PH, Urine 5.5 (5.0-8.0); Protein,Urine Trace (Negative); RBC,Urine 121 /hpf (0-5); Specific Gravity,Urine 1.018 (1.001-1.035); WBC,Urine 9 /hpf (0-5)
[2022-08-18 03:53] LABS: Amphetamine Screen,Urine Not Detected (NotDetected); Barbiturate Screen,Urine Detected (NotDetected); Benzodiazepines Screen,Urine Detected (NotDetected); Cocaine Screen,Urine Not Detected (NotDetected); Methadone Screen, Urine Not Detected (NotDetected); Opiate Screen,Urine Not Detected (NotDetected); Oxycodone Screen, Urine Not Detected (NotDetected); Phencyclidine Screen,Urine Not Detected (NotDetected); Tricyclic Antidepressant,Urine Not Detected (NotDetected); Urn Cannabinoid Scrn Not Detected (NotDetected)
--- NOTE | 2022-08-18 03:55 | P.CNPUL ---
History of Present Illness Consult date: 08/18/22 Requesting physician: Dmitry Joseph Reason for consult: other (ICU management) Chief complaint: Altered mental status and agitation History of present illness: I am seeing this patient in new consultation today 08/18/2022 for ICU management. Patient is a 67-year-old male who was transferred from [facility] last night. Apparently, the patient resides at an [facility] home and presented to [facility] earlier in the day after some facial trauma. According to Amaya's records, the patient was evaluated and sent back to the [facility] home. He then developed some altered mentation and agitation, and returned to [facility]. While in the emergency room, the patient reportedly de veloped some acute worsening confusion and agitation. He required multiple doses of Ativan and Haldol. The patient eventually had to be intubated to protect his airway. Urine tox screen was negative at the outside facility for alcohol or recreational drugs. He was taking a combination of tramadol, SSRIs, and Zyprexa, and there was some concern for Serotonin syndrome or neuromalignant syndrome. The patient was apparently hyperthermic with reported clonus. Identified past medical history from [facility] includes schizophrenia, bipolar, gastrointestinal malignancy, pathological vertebral fracture of the thoracic vertebra, hypertension, hyperlipidemia, current smoker. On arrival to the emergency room last night, the patient did have a noncontrast CT of the head and c-spine which showed no acute intracranial abnormalities or traumatic fractures. Patient is currently sedated on propofol infusing at 35 mcg/kg/m. He is synchronous with mechanical ventilator with current settings of assist control, respiratory rate 16, tidal volume 400, FiO2 100%, and PEEP of 5. ABG done on these setting shows a pO2 of 98, pCO2 of 43, pH of 7.4. PEEP was increased to 10. Chest x-ray shows an endotracheal tube with tip approximately 6 cm above the alvaro, and oral gastric tube coursing below the diaphragm. No focal consolidation or evidence of pneumonia. Most recent CBC from this morning shows a WBC count 3.9, hemoglobin 7.1, hematocrit 21.3, platelets 162. Most recent BMP from this morning shows a sodium 138, potassium 3.9, chloride 104, serum CO2 27, BUN 34, creatinine 0.84, glucose was 123. Normal saline is infusing at 20 ML's per hour. BP is normotensive. Urine output is in order of approximately 15 ml per hour. He is currently afebrile. Patient will be monitored in the intensive care unit. Review of Systems ROS unobtainable: due to endotracheal tube Past Medical History Past Medical History: GERD/Reflux, Hyperlipidemia, Hypertension Additional Past Medical History / Comment(s): chronic back pain History of Any Multi-Drug Resistant Organisms: None Reported Past Surgical History: Hernia Repair Past Anesthesia/Blood Transfusion Reactions: No Reported Reaction Past Psychological History: Bipolar, Schizophrenia Smoking Status: Current every day smoker Past Alcohol Use History: None Reported Past Drug Use History: None Reported Medications and Allergies Home Medications Medication Instructions Recorded Confirmed Type Ascorbic Acid [Vitamin C] 500 mg PO BID 08/10/22 08/17/22 History Aspirin EC [Ecotrin Low Dose] 81 mg PO DAILY 08/10/22 08/17/22 History Atorvastatin [Lipitor] 40 mg PO HS 08/10/22 08/17/22 History Cholecalciferol [Vitamin D3 (125 125 mcg PO DAILY 08/10/22 08/17/22 History Mcg = 5000 Iu)] Divalproex ER [Depakote ER] 1,000 mg PO BID 08/10/22 08/17/22 History FLUoxetine HCL [PROzac] 60 mg PO DAILY 08/10/22 08/17/22 History Famotidine 20 mg PO BID 08/10/22 08/17/22 History Multivitamins, Thera [Multivitamin 1 tab PO DAILY 08/10/22 08/17/22 History (formulary)] OLANZapine ODT [ZyPREXA Zydis] 5 mg PO HS 08/10/22 08/17/22 History OLANZapine [ZyPREXA Zydis] 20 mg PO HS 08/10/22 08/17/22 History Primidone [Mysoline] 50 mg PO HS 08/10/22 08/17/22 History amLODIPine [Norvasc] 2.5 mg PO DAILY 08/10/22 08/17/22 History predniSONE 30 mg PO DAILY 08/10/22 08/17/22 History Nicotine 14Mg/24Hr Patch [Habitrol] 1 patch TRANSDERM DAILY PRN 08/17/22 08/17/22 History Allergies Allergy/AdvReac Type Severity Reaction Status Date / Time lisinopril Allergy Swelling Verified 08/17/22 21:41 naproxen Allergy Swelling Verified 08/17/22 21:41 Physical Exam Vitals: Vital Signs Temp Pulse Resp BP Pulse Ox FiO2 08/18/22 03:00 101 H 25 H 100/66 100 08/18/22 02:31 100 08/18/22 02:30 103 H 29 H 100/66 99 08/18/22 02:10 104 H 20 100/66 96 100 08/18/22 02:00 105 H 23 111/69 94 L 08/18/22 01:50 97.1 F L 105 H 26 H 111/69 95 100 08/18/22 01:20 112 H 125/82 92 L 08/17/22 23:02 97.8 F 97 16 101/67 98 08/17/22 22:41 97 16 98/69 99 08/17/22 20:59 97.8 F 109 H 16 134/82 94 L 08/17/22 20:47 60 Intake and Output 08/17/22 08/17/22 08/18/22 14:59 22:59 06:59 Intake Total 5.904 668.276 Output Total 15 Balance 5.904 653.276 Intake: IV 620 0.9 120 Sodium Chloride 0.9% 500 500 ml 500 ml @ 999 mls/hr IV .Q31M ONE Rx#:[id number] Intake, IV Titration 5.904 48.276 Amount propofoL 1,000 mg In 5.904 48.276 Empty Bag 1 bag @ 15 MCG/ KG/MIN 6.48 mls/hr IV . [id number] [facility] Rx#:[id number] Output: Urine 15 Other: Weight 72 kg GENERAL EXAM: Sedated and synchronous with mechanical ventilator HEAD: Normocephalic. There are multiple facial abrasions and ecchymosis EYES: Normal reaction of pupils, equal size. NOSE: Clear with pink turbinates. THROAT: No erythema or exudates. NECK: No masses, no JVD. CHEST: No chest wall deformity. LUNGS: Equal air entry with no crackles, wheeze, rhonchi or dullness. Intubated to the mechanical ventilator CVS: S1 and S2 normal with no audible murmur, regular rhythm. No extra heart sounds ABDOMEN: No hepatosplenomegaly, active bowel sounds, no guarding or rigidity. SPINE: No scoliosis or deformity SKIN: Multiple abrasions located on bilateral lower extremity some CENTRAL NERVOUS SYSTEM: No focal deficits noted. Patient responds to painful stimuli only, and is currently sedated on propofol. EXTREMITIES: There is no peripheral edema, clubbing, or cyanosis. Peripheral pulses are intact. Results - Laboratory Findings CBC and BMP: 08/18/22 00:38 08/18/22 00:38 ABG ABG pH 7.40 (7.35-7.45) 08/18/22 02:24 ABG pCO2 43 mmHg (35-45) 08/18/22 02:24 ABG pO2 98 mmHg (83-108) 08/18/22 02:24 ABG O2 Saturation 97.7 % (94-97) H 08/18/22 02:24 Abnormal lab findings: Abnormal Labs 08/17/22 08/17/22 08/18/22 21:29 21:29 00:38 RBC 2.41 L 2.25 L Hgb 7.4 L D 7.1 L Hct 22.2 L 21.3 L Plt Count 146 L Lymphocytes # 0.9 L ABG HCO3 ABG Total CO2 ABG O2 Saturation BUN 34 H Glucose 127 H POC Glucose (mg/dL) Calcium 8.1 L Magnesium AST 197 H Alkaline Phosphatase 362 H Total Protein 5.4 L Albumin 2.4 L 08/18/22 08/18/22 08/18/22 00:38 01:47 02:24 RBC Hgb Hct Plt Count Lymphocytes # ABG HCO3 27 H ABG Total CO2 28 H ABG O2 Saturation 97.7 H BUN 34 H Glucose 123 H POC Glucose (mg/dL) 223 H Calcium Magnesium 2.4 H AST Alkaline Phosphatase Total Protein Albumin - Diagnostic Findings Chest x-ray: image reviewed Assessment and Plan Assessment: Altered mental status and agitation currently under investigation. He did require multiple doses of Ativan and Haldol at outside facility, and eventually had to be intubated to protect his airway. Non contrast CT of brain and c-spine shows no acute intracranial abnormality. Urine tox drug screen was negative for recreational drugs or alcohol. He was taking a combination of tramadol, SSRIs, and Zyprexa; and there was some concern for Serotonin syndrome or neuromalignant syndrome at outside facility. Acute hypoxic respiratory failure secondary to above, currently on a mechanical ventilator Anemia History of schizophrenia Reported history of unknown gastrointestinal malignancy and pathological vertebral fracture of the thoracic vertebra Hypertension Hyperlipidemia Current smoker Plan: Patient's medications, labs, chest x-ray reviewed Continue on the mechanical ventilator Increase PEEP to 10 Propofol for sedation advance ET tube 2 cm Consult neurology Give a one time 500 ML normal saline bolus for low urine output, and start the patient on normal saline at 100 mL per hour hernandez cultures Heparin for DVT prophylaxis Protonix for GI prophylaxis We will continue to monitor the patient in intensive care unit I have personally seen and examined the patient, performed the documentation and the assessment and plan as written. Number of minutes spent on the visit:20 This is a joint evaluations was done along with the nurse practitioner. 6-7 -year-[age] male patient with known history of schizophrenia bipolar disorder hypertension and hyperlipidemia who lives in a foster care. The patient was in our hospital approximately 2 weeks ago for lower back pain. At that time, the patient a CAT scan and it showed a T9 vertebral fracture. The patient was seen by orthopedic surgery and the patient was given a brace and the patient was given tramadol for pain control along with a prednisone taper. He takes Zyprexa and Prozac and Depakote on outpatient basis. He developed altered mentation as discussed above and he also sustained a right facial trauma. The patient is coming in with altered mentation and the patient is also intubated on a mechanical ventilator. He was given a combination of Haldol and Ativan and then outside facility. This morning he is on propofol is running at 40 mcg/kg/m. He is on normal saline running at 100 mL an hour. The patient is on assist- control mode of mechanical ventilation at the rate of 16, tidal volume of 400, FiO2 is at 80% with a PEEP of 10. Chest x-ray shows a widened mediastinum and the right lower lobe pulmonary infiltrates/effusion. There is also a drop in hemoglobin down to 7.1. The patient may have an underlying chronic anemia normocytic and his last hemoglobin from a prior admission was at 9.0. Morning blood gases showed a pH of 7.37 with a pCO2 of 46 and pO2 of 82. Current pulse ox is at 88%. We'll continue ventilator support for now. We'll add IV Zosyn as an empiric an tibiotic coverage for aspiration pneumonia. We'll proceed with a CTA of the chest and evaluated the widened mediastinum. Keep the patient on propofol for now. We will use a fentanyl drip if needed to maintain adequate sedation. Add IV Protonix. Heparin subcu portably prophylaxis. We will hold the psychiatric medications for now which included Zyprexa and Prozac. We'll check a Depakote level. Urine drug screen is positive for benzodiazepine and barbiturates. We'll continue to follow. Condition is critical. His evaluation was done a more than 30 minutes. Time with Patient: Greater than 30
[2022-08-18] MEDS: IPRATROPIUM-ALBUTEROL 3 ML NEB INHALATION SCH ×6 (04:31→23:27)
[2022-08-18 06:19] LABS: ABG Base Excess 1.3 mmol/L; ABG HCO3 27 mmol/L (21-25); ABG Oxygen Saturation 95.3 % (94-97); ABG PCO2 46 mmHg (35-45); ABG PH 7.37 (7.35-7.45); ABG PO2 82 mmHg (83-108); ABG TCO2 28 mmol/L (19-24); Allen Test Performed? Yes
[2022-08-18] MEDS: CHLORHEXIDINE GLUCONATE 15 ML CUP MUCOUS MEM SCH ×2 (08:25→20:14)
[2022-08-18] MEDS: PANTOPRAZOLE 40 MG/10 ML VIAL IV SCH (08:25)
[2022-08-18] MEDS: HEPARIN SODIUM,PORCINE/PF 5,000 UNIT/0.5 ML SYRINGE SQ SCH ×2 (08:25→20:14)
[2022-08-18] MEDS: SODIUM CHLORIDE 0.9% 80 ML with fentaNYL (PF) 1,000 MCG IV SCH ×4 (10:12→20:15)
--- NOTE | 2022-08-18 10:33 | P.HPIM ---
History of Present Illness This is a pleasant 67 years old male with past medical history of GERD/Reflux, Hyperlipidemia, Hypertension Patient currently intubated and cannot provide information so it was opted from staff And medical records Looks like patient fell and he has facial trauma, pt sent over from [facility] for resp distress after being given multiple medications for his Schizophrenia. EMS states they had gotten call about Priority 1 transfer due to intubation and states the nursing staff stated his airway was compromised. This morning patient become more tachycardic with low urine output therefore a bolus of normal saline as provided for him as well Patient is afebrile, tachycardic and tachypneic. His FiO2 of 80% and saturating 88%. Labs showing unremarkable CBC except for low hemoglobin of 7.1. His normal 7.3. BMP and liver enzymes are unremarkable. Urine analysis showed urinary blood, could be secondary to trauma. Chest x-ray: No acute process CT of the head and neck: No acute process Review of Systems ROS unobtainable: due to endotracheal tube, due to mental status Past Medical History Past Medical History: GERD/Reflux, Hyperlipidemia, Hypertension Additional Past Medical History / Comment(s): chronic back pain, per caregiver Pt is on a fluid restriction for "low sodium" History of Any Multi-Drug Resistant Organisms: None Reported Past Surgical History: Hernia Repair Past Anesthesia/Blood Transfusion Reactions: No Reported Reaction Past Psychological History: Bipolar, Schizophrenia Additional Psychological History / Comment(s): Pt caregiver states Pt's mood has been stable for 23 years prior to now Smoking Status: Current every day smoker Past Alcohol Use History: None Reported Additional Past Alcohol Use History / Comment(s): 03/25-1/ PPD Past Drug Use History: None Reported - Past Family History Father History Unknown: Yes Mother History Unknown: Yes Medications and Allergies Home Medications Medication Instructions Recorded Confirmed Type Ascorbic Acid [Vitamin C] 500 mg PO BID 08/10/22 08/17/22 History Aspirin EC [Ecotrin Low Dose] 81 mg PO DAILY 08/10/22 08/17/22 History Atorvastatin [Lipitor] 40 mg PO HS 08/10/22 08/17/22 History Cholecalciferol [Vitamin D3 (125 125 mcg PO DAILY 08/10/22 08/17/22 History Mcg = 5000 Iu)] Divalproex ER [Depakote ER] 1,000 mg PO BID 08/10/22 08/17/22 History FLUoxetine HCL [PROzac] 60 mg PO DAILY 08/10/22 08/17/22 History Famotidine 20 mg PO BID 08/10/22 08/17/22 History Multivitamins, Thera [Multivitamin 1 tab PO DAILY 08/10/22 08/17/22 History (formulary)] OLANZapine ODT [ZyPREXA Zydis] 5 mg PO HS 08/10/22 08/17/22 History OLANZapine [ZyPREXA Zydis] 20 mg PO HS 08/10/22 08/17/22 History Primidone [Mysoline] 50 mg PO HS 08/10/22 08/17/22 History amLODIPine [Norvasc] 2.5 mg PO DAILY 08/10/22 08/17/22 History predniSONE 30 mg PO DAILY 08/10/22 08/17/22 History Nicotine 14Mg/24Hr Patch [Habitrol] 1 patch TRANSDERM DAILY PRN 08/17/22 History Allergies Allergy/AdvReac Type Severity Reaction Status Date / Time lisinopril Allergy Swelling Verified 08/17/22 21:41 naproxen Allergy Swelling Verified 08/17/22 21:41 Physical Exam Vitals: Vital Signs Temp Pulse Resp BP Pulse Ox FiO2 08/18/22 08:30 112 H 19 114/70 95 08/18/22 08:00 98.1 F 115 H 20 115/79 96 80 08/18/22 07:30 115 H 19 112/76 96 08/18/22 07:00 114 H 20 113/76 95 08/18/22 06:30 113 H 16 113/74 95 08/18/22 06:00 97.0 F L 112 H 21 112/73 95 08/18/22 05:45 80 08/18/22 05:30 107 H 24 107/70 98 80 08/18/22 05:00 105 H 26 H 111/64 98 08/18/22 04:36 103 H 08/18/22 04:31 101 H 08/18/22 04:30 102 H 26 H 109/68 99 08/18/22 04:04 90 08/18/22 04:00 99 25 H 108/72 100 08/18/22 03:41 100 08/18/22 03:30 98 25 H 111/64 100 08/18/22 03:00 101 H 25 H 100/66 100 08/18/22 02:31 100 08/18/22 02:30 103 H 29 H 100/66 99 08/18/22 02:10 104 H 20 100/66 96 100 08/18/22 02:00 105 H 23 111/69 94 L 08/18/22 01:50 97.1 F L 105 H 26 H 111/69 95 100 08/18/22 01:20 112 H 125/82 92 L 08/17/22 23:02 97.8 F 97 16 101/67 98 08/17/22 22:41 97 16 98/69 99 08/17/22 20:59 97.8 F 109 H 16 134/82 94 L 08/17/22 20:47 60 Intake and Output 08/17/22 08/18/22 08/18/22 22:59 06:59 14:59 Intake Total 5.904 1009.856 246.08 Output Total 115 200 Balance 5.904 894.856 46.08 Intake: IV 920 200 0.9 420 200 Sodium Chloride 0.9% 500 500 ml 500 ml @ 999 mls/hr IV .Q31M ONE Rx#:[id number] Intake, IV Titration 5.904 89.856 46.08 Amount propofoL 1,000 mg In 5.904 89.856 46.08 Empty Bag 1 bag @ 15 MCG/ KG/MIN 6.48 mls/hr IV . [id number] [facility] Rx#:[id number] Output: Urine 115 200 Other: Voiding Method Indwelling Catheter Weight 72 kg 72 kg -GENERAL: The patient is intubated and sedated -HEENT: Pupils are round and equally reacting to light. EOMI. No scleral icterus. No conjunctival pallor. Normocephalic, atraumatic. No pharyngeal erythema. No thyromegaly. His nose is swollen with evidence of dried blood in the nostrils CARDIOVASCULAR: S1 and S2 present. No murmurs, rubs, or gallops. PULMONARY: Chest is clear to auscultation, no wheezing or crackles. ABDOMEN: Soft, nontender, nondistended, normoactive bowel sounds. No palpable organomegaly. MUSCULOSKELETAL: No joint swelling or deformity. EXTREMITIES: No cyanosis, clubbing, or pedal edema. NEUROLOGICAL: Gross neurological examination did not reveal any focal deficits. SKIN: No rashes. no petechiae. Results CBC & Chem 7: 08/18/22 00:38 08/18/22 00:38 Labs: Abnormal Lab Results - Last 24 Hours (Table) 08/17/22 08/17/22 08/18/22 Range/Units 21:29 21:29 00:38 RBC 2.41 L 2.25 L (4.30-5.90) m/uL Hgb 7.4 L D 7.1 L (13.0-17.5) gm/dL Hct 22.2 L 21.3 L (39.0-53.0) % Plt Count 146 L (150-450) k/uL Lymphocytes # 0.9 L (1.0-4.8) k/uL ABG pCO2 (35-45) mmHg ABG pO2 (83-108) mmHg ABG HCO3 (21-25) mmol/L ABG Total CO2 (19-24) mmol/L ABG O2 Saturation (94-97) % BUN 34 H (9-20) mg/dL Glucose 127 H (74-99) mg/dL POC Glucose (mg/dL) (70-110) mg/dL Calcium 8.1 L (8.4-10.2) mg/dL Magnesium (1.6-2.3) mg/dL AST 197 H (17-59) U/L Alkaline Phosphatase 362 H (38-126) U/L Total Protein 5.4 L (6.3-8.2) g/dL Albumin 2.4 L (3.5-5.0) g/dL Urine Protein (Negative) Urine Ketones (Negative) Urine Blood (Negative) Urine RBC (0-5) /hpf Urine WBC (0-5) /hpf Urine Bacteria (None) /hpf Urine Mucus (None) /hpf Ur Barbiturates Screen (NotDetected) U Benzodiazepines Scrn (NotDetected) 08/18/22 08/18/22 08/18/22 Range/Units 00:38 01:47 02:24 RBC (4.30-5.90) m/uL Hgb (13.0-17.5) gm/dL Hct (39.0-53.0) % Plt Count (150-450) k/uL Lymphocytes # (1.0-4.8) k/uL ABG pCO2 (35-45) mmHg ABG pO2 (83-108) mmHg ABG HCO3 27 H (21-25) mmol/L ABG Total CO2 28 H (19-24) mmol/L ABG O2 Saturation 97.7 H (94-97) % BUN 34 H (9-20) mg/dL Glucose 123 H (74-99) mg/dL POC Glucose (mg/dL) 223 H (70-110) mg/dL Calcium (8.4-10.2) mg/dL Magnesium 2.4 H (1.6-2.3) mg/dL AST (17-59) U/L Alkaline Phosphatase (38-126) U/L Total Protein (6.3-8.2) g/dL Albumin (3.5-5.0) g/dL Urine Protein (Negative) Urine Ketones (Negative) Urine Blood (Negative) Urine RBC (0-5) /hpf Urine WBC (0-5) /hpf Urine Bacteria (None) /hpf Urine Mucus (None) /hpf Ur Barbiturates Screen (NotDetected) U Benzodiazepines Scrn (NotDetected) 08/18/22 08/18/22 Range/Units 03:30 06:17 RBC (4.30-5.90) m/uL Hgb (13.0-17.5) gm/dL Hct (39.0-53.0) % Plt Count (150-450) k/uL Lymphocytes # (1.0-4.8) k/uL ABG pCO2 46 H (35-45) mmHg ABG pO2 82 L (83-108) mmHg ABG HCO3 27 H (21-25) mmol/L ABG Total CO2 28 H (19-24) mmol/L ABG O2 Saturation (94-97) % BUN (9-20) mg/dL Glucose (74-99) mg/dL POC Glucose (mg/dL) (70-110) mg/dL Calcium (8.4-10.2) mg/dL Magnesium (1.6-2.3) mg/dL AST (17-59) U/L Alkaline Phosphatase (38-126) U/L Total Protein (6.3-8.2) g/dL Albumin (3.5-5.0) g/dL Urine Protein Trace H (Negative) Urine Ketones 1+ H (Negative) Urine Blood Large H (Negative) Urine RBC 121 H (0-5) /hpf Urine WBC 9 H (0-5) /hpf Urine Bacteria Rare H (None) /hpf Urine Mucus Occasional H (None) /hpf Ur Barbiturates Screen Detected H (NotDetected) U Benzodiazepines Scrn Detected H (NotDetected) Thrombosis Risk Factor Assmnt - Choose All That Apply Any of the Below Risk Factors Present?: Yes Each Factor Represents 1 point: Medical pt on bed rest Other Risk Factors: Yes Each Risk Factor Represents 2 Points: Patient confined to bed Other congenital or acquired thrombophilia - If yes, enter type in comment: No Thrombosis Risk Factor Assessment Total Risk Factor Score: 3 Thrombosis Risk Factor Assessment Level: Moderate Risk Assessment and Plan Assessment: Altered mental status most likely secondary to metabolic/toxic encephalopathy, rule out intracranial causes acute hypoxic respiratory failure with airway compromise status post intubation and mechanical ventilation schizophrenia and bipolar disorder Normochromic, normocytic Anemia Fall with nasal/facial trauma Hypertension Nicotine dependence Hyperlipidemia Chronic low back pain History of GERD History of osteoarthritis Plan: Continue with gentle hydration Continue with mechanical ventilation with pulmonary/critical care team on the case Neurology consult follow-up CT of the chest Labs and medication were reviewed.. Further recommendations as per clinical course of the patient DVT prophylaxis: Subcutaneous heparin GI Prophylaxis: Ppi Prognosis is guarded
[2022-08-18] MEDS ORDERED: CISATRACURIUM 2 MG/ML 5 ML VIAL IV ONE ×2 (11:25→13:56)
--- NOTE | 2022-08-18 12:39 | P.CNNES ---
History of Present Illness Consult date: 08/18/22 Requesting physician: Yosvany Mora Reason for Consult: Altered mental status History of Present Illness: Patient is a 67-year-old male came to the hospital as a transfer from [facility] ER by ambulance yesterday at 8:47 PM for altered mental status. Patient resident of an adult foster senior living, has problems with chronic low back pain. He was getting tramadol for pain, but was getting confused. Patient suffered from a fall, producing bruising over the in the forehead and the chin, and the patient was brought to [facility]. While in the hospital ER, patient became agitated, was not following commands, was given some Haldol 2.5 mg IM and Ativan 1 mg IV push. Patient's mental status got worse and he was intubated in the ER for airway protection and transferred to [facility], to rule out serotonin syndrome. Patient currently sedated with propofol 40 micrograms per kilogram per minute, also on fentanyl 1.5 g/kg/hr EMS flow sheet not available in the chart. Vital signs arrival blood pressure 134/82, pulse rate 109, temperature 97.8. Blood test shows normal WBC hemoglobin 7.4, platelets 146, electrolytes are normal, renal functions normal, AST elevated 197 with normal ALT 44. UA shows 121 RBC and 9 WBC. Urine drug screen positive for barbiturate and benzodiazepine. ABG with pH 7.40, pCO2 [address] saturation 97.7%. CT head showed no acute process. On my review, there is slight prominence of the subdural space in the frontal region without any acute process. There is mild congestion of the ethmoid sinuses but other sinuses are clear. CT of the cervical spine showed no acute cervical spine posttraumatic abnormality. EKG shows sinus tachycardia, chest x-ray showed no acute process. Review of records from [facility], it mentions that patient has history of shoes aphemia, current gastrointestinal maintenance he being worked up outpatient. Pathologic fracture in the thoracic vertebra, who presented to the ED for acute worsening of confusion and altered mental status per caregiver at the adult foster care facility. Patient has not missed any of his medication for his schizophrenia or depression. No known history of any indigestion or alcohol or recreational drugs. It appears patient was seen in the [place] ER 6 hours prior to the second admission, when he was seen for a fall from standing position. He was only found to have a small laceration to his nose that was repaired. CT of head and neck were negative. Patient and caregiver were told to stop giving tramadol due to him taking fluoxetine for depression as well as to reduce the risk of serotonin syndrome. The ED staff at [place] spoke to poison control Center, and was recommended a urine drug screen, and to give benzodiazepine for agitation. Patient received multiple doses of lorazepam due to his agitation therefore develop decrease in mental status. He began developing some clonus and was found to be slightly hyperthermic axillary. Moderate to severe serotonin syndrome was suspected. He was intubated. Fentanyl drip was recommended with Versed as needed for sedation per poison control Center. UA showed no infection, CBC with WBC 7.51, hemoglobin 7.2 and platelets 167. Depakote level was 46(50-120) CPK 462 slightly elevated magnesium was 2.3 normal. Chem-20 with normal renal and hepatic panel with slightly elevated AST 201. worsening of some facial trauma. CT of head and neck were negative for any acute process. There was concern for serotonin syndrome, therefore patient was transferred to [facility]. His urine drug screen at [facility] was positive for benzo, barbiturate. His vitals at [facility] was blood pressure 99/57, pulse rate 114, respiration 22, saturation 93% Patient has history of hyperlipidemia, hypertension, bipolar disorder, schizophrenia, acid reflux, lumbar back pain, facial laceration, medication side effect and a fall. The patient takes Zyprexa 25 mg at bedtime, primidone 50 mg at bedtime, Lipitor 40 mg, vitamin D, Prozac 60 mg daily, aspirin 81 mg, ibuprofen, prednisone 10 mg daily, vitamin C, amlodipine 2.5 mg, Depakote 1000 mg twice a day and Pepcid 20 mg twice a day. Review of Systems ROS unobtainable: due to endotracheal tube, due to mental status Past Medical History Past Medical History: GERD/Reflux, Hyperlipidemia, Hypertension Additional Past Medical History / Comment(s): chronic back pain History of Any Multi-Drug Resistant Organisms: None Reported Past Surgical History: Hernia Repair Past Anesthesia/Blood Transfusion Reactions: No Reported Reaction Past Psychological History: Bipolar, Schizophrenia Smoking Status: Current every day smoker Past Alcohol Use History: None Reported Past Drug Use History: None Reported - Past Family History Father History Unknown: Yes Mother History Unknown: Yes Medications and Allergies Home Medications Medication Instructions Recorded Confirmed Type Ascorbic Acid [Vitamin C] 500 mg PO BID 08/10/22 08/17/22 History Aspirin EC [Ecotrin Low Dose] 81 mg PO DAILY 08/10/22 08/17/22 History Atorvastatin [Lipitor] 40 mg PO HS 08/10/22 08/17/22 History Cholecalciferol [Vitamin D3 (125 125 mcg PO DAILY 08/10/22 08/17/22 History Mcg = 5000 Iu)] Divalproex ER [Depakote ER] 1,000 mg PO BID 08/10/22 08/17/22 History FLUoxetine HCL [PROzac] 60 mg PO DAILY 08/10/22 08/17/22 History Famotidine 20 mg PO BID 08/10/22 08/17/22 History Multivitamins, Thera [Multivitamin 1 tab PO DAILY 08/10/22 08/17/22 History (formulary)] OLANZapine ODT [ZyPREXA Zydis] 5 mg PO HS 08/10/22 08/17/22 History OLANZapine [ZyPREXA Zydis] 20 mg PO HS 08/10/22 08/17/22 History Primidone [Mysoline] 50 mg PO HS 08/10/22 08/17/22 History amLODIPine [Norvasc] 2.5 mg PO DAILY 08/10/22 08/17/22 History predniSONE 30 mg PO DAILY 08/10/22 08/17/22 History Nicotine 14Mg/24Hr Patch [Habitrol] 1 patch TRANSDERM DAILY PRN 08/17/22 08/17/22 History Allergies Allergy/AdvReac Type Severity Reaction Status Date / Time lisinopril Allergy Swelling Verified 08/17/22 21:41 naproxen Allergy Swelling Verified 08/17/22 21:41 Physical Examination - Vital Signs Vital Signs: Vital Signs Temp Pulse Resp BP Pulse Ox FiO2 08/18/22 09:23 122 H 27 H 08/18/22 09:16 80 08/18/22 09:00 116 H 21 99/62 88 L 08/18/22 08:30 112 H 19 114/70 95 08/18/22 08:00 98.1 F 115 H 20 115/79 96 80 08/18/22 07:30 115 H 19 112/76 96 08/18/22 07:00 114 H 20 113/76 95 08/18/22 06:30 113 H 16 113/74 95 08/18/22 06:00 97.0 F L 112 H 21 112/73 95 08/18/22 05:45 80 08/18/22 05:30 107 H 24 107/70 98 80 08/18/22 05:00 105 H 26 H 111/64 98 08/18/22 04:36 103 H 08/18/22 04:31 101 H 08/18/22 04:30 102 H 26 H 109/68 99 08/18/22 04:04 90 08/18/22 04:00 99 25 H 108/72 100 08/18/22 03:41 100 08/18/22 03:30 98 25 H 111/64 100 08/18/22 03:00 101 H 25 H 100/66 100 08/18/22 02:31 100 08/18/22 02:30 103 H 29 H 100/66 99 08/18/22 02:10 104 H 20 100/66 96 100 08/18/22 02:00 105 H 23 111/69 94 L 08/18/22 01:50 97.1 F L 105 H 26 H 111/69 95 100 08/18/22 01:20 112 H 125/82 92 L 08/17/22 23:02 97.8 F 97 16 101/67 98 08/17/22 22:41 97 16 98/69 99 08/17/22 20:59 97.8 F 109 H 16 134/82 94 L 08/17/22 20:47 60 Intake and Output 08/17/22 08/18/22 08/18/22 22:59 06:59 14:59 Intake Total 5.904 1009.856 246.08 Output Total 115 200 Balance 5.904 894.856 46.08 Intake: IV 920 200 0.9 420 200 Sodium Chloride 0.9% 500 500 ml 500 ml @ 999 mls/hr IV .Q31M [facility] Rx#:[id number] Intake, IV Titration 5.904 89.856 46.08 Amount propofoL 1,000 mg In 5.904 89.856 46.08 Empty Bag 1 bag @ 15 MCG/ KG/MIN 6.48 mls/hr IV . [id number] [facility] Rx#:[id number] Output: Urine 115 200 Other: Voiding Method Indwelling Catheter Weight 72 kg 72 kg Patient is an elderly male, who is intubated, sedated with propofol 40 mcg/kg/m and fentanyl 1.5 mcg/kg/hr. Patient is comatose, not responding to any painful stimuli, with GCS of 3. Attention, concentration and fund of knowledge is unable to be assessed and speech and language functions also cannot be assessed. Patient is breathing over the ventilator at 24/m for the set rate of 16. On cranial nerve examination, pupils are equal, round and reacting to light, visual norman could not be assessed. Oculocephalics are absent, corneal absent. Face is symmetric, patient does not have significant gag or cough with deep suctioning. Lower cranial nerves could not be assessed. Patient has bruises over his nose, forehead and the chin. On muscle strength testing, the tone is equal in the arms and legs. No obvious seizure activity noticed. Patient not able to participate with motor strength testing because of mental status. Deep tendon reflexes are absent all over and plantars are flat. Sensory to touch or painful stimuli, patient does not respond. Cerebellar function cannot be assessed. Tone and bulk of muscles normal. Gait not able to be assessed On general examination, there is no carotid bruit or murmur, S1-S2 audible. Chest is clear on consultation. Abdomen is soft nontender. No organomegaly, bowel sounds present. Peripheral pulses are present. No edema. Results - Laboratory Findings CBC and BMP: 08/18/22 00:38 08/18/22 00:38 Abnormal Lab Findings: Abnormal Labs 08/17/22 08/17/22 08/18/22 21:29 21:29 00:38 RBC 2.41 L 2.25 L Hgb 7.4 L D 7.1 L Hct 22.2 L 21.3 L Plt Count 146 L Lymphocytes # 0.9 L ABG pCO2 ABG pO2 ABG HCO3 ABG Total CO2 ABG O2 Saturation BUN 34 H Glucose 127 H POC Glucose (mg/dL) Calcium 8.1 L Magnesium AST 197 H Alkaline Phosphatase 362 H Total Protein 5.4 L Albumin 2.4 L Urine Protein Urine Ketones Urine Blood Urine RBC Urine WBC Urine Bacteria Urine Mucus Ur Barbiturates Screen U Benzodiazepines Scrn 08/18/22 08/18/22 08/18/22 00:38 01:47 02:24 RBC Hgb Hct Plt Count Lymphocytes # ABG pCO2 ABG pO2 ABG HCO3 27 H ABG Total CO2 28 H ABG O2 Saturation 97.7 H BUN 34 H Glucose 123 H POC Glucose (mg/dL) 223 H Calcium Magnesium 2.4 H AST Alkaline Phosphatase Total Protein Albumin Urine Protein Urine Ketones Urine Blood Urine RBC Urine WBC Urine Bacteria Urine Mucus Ur Barbiturates Screen U Benzodiazepines Scrn 08/18/22 08/18/22 03:30 06:17 RBC Hgb Hct Plt Count Lymphocytes # ABG pCO2 46 H ABG pO2 82 L ABG HCO3 27 H ABG Total CO2 28 H ABG O2 Saturation BUN Glucose POC Glucose (mg/dL) Calcium Magnesium AST Alkaline Phosphatase Total Protein Albumin Urine Protein Trace H Urine Ketones 1+ H Urine Blood Large H Urine RBC 121 H Urine WBC 9 H Urine Bacteria Rare H Urine Mucus Occasional H Ur Barbiturates Screen Detected H U Benzodiazepines Scrn Detected H Assessment and Plan Assessment: * Altered mental status, likely due to toxic metabolic encephalopathy. Rule out serotonin syndrome. Altered mental status, also related to medication use (Ativan) * Status post fall at [facility] * Ventilator-dependent respiratory failure, on mechanical ventilation. * History of GI malignancy * Reported history of compression fracture from cancer. * Bipolar disorder * Psychiatric disorder * Resident of [facility] Plan: * Stat EEG, rule out status epilepticus * CT of the facial bones, rule out facial bone fracture. * Check ammonia level, TSH, Depakote level 46, continue Depakote. * B12 809, folate 8.10. * Psychiatric consultation for addressing psych medication. * Neurology will follow clinically. Thank you for the consult.
--- NOTE | 2022-08-18 13:47 | P.PN ---
Progress Note - Text Progress Note Date: 08/18/22 This provider attempted to assess the patient at approximately 1:25 PM on . Currently, the patient went for a CT scan and is not present in the room. Chart and labs reviewed. Agree with Neurology assessment. TSH, B12, folate, and Depakote level were checked and WNL. CK and Lactic acid ordered. Ammonia pending. As per review of patient chart, Tachycardia and Tachypnea present. Afebrile. No clonus or hyperreactive reflexes are noted on neurological exam. Pupils are observed to be equal, round and reacting to light. Do not suspect Serotonin syndrome. However Psychiatry will reassess patient tomorrow. Plan discussed with patient's nurse Pia. We will reattempt assessment tomorrow. Patient is currently intubated.
--- NOTE | 2022-08-18 13:52 | CT ---
EXAMINATION TYPE: CT chest wo con DATE OF EXAM: 08/18/2022 COMPARISON: HISTORY: rule out thoracic aneurysm CT DLP: 416.[address] of the chest was performed with lung and mediastinal window settings submitted. The la ck of contrast limits evaluation of the vascular, mediastinal and parenchymal structures including th e upper abdomen. LUNGS: Small moderate bilateral pleural effusions measuring 4.9 cm AP dimension on the right and 3 cm maximal AP dimension on the left. There is basilar atelectasis or infiltrate seen. Right upper lobe nodule measuring 7.4 mm. MEDIASTINUM/DAVID: Thoracic aorta is of normal caliber with limited evaluation given lack of contrast . Maximal AP dimension of the thoracic aorta is 3 cm. Ascending thoracic aorta is of normal caliber. The heart is not enlarged. No pericardial effusion noted measuring 5.4 mm. Multiple mediastinal mas ses noted compatible with adenopathy. Aortic adenopathy measuring conglomerate mass of 7.5 cm. Left p eriaortic adenopathy measuring 4.6 cm. Prevascular space adenopathy with conglomerate mass measuring 8.9 x 4.3 cm. There is supraclavicular adenopathy noted. Extensive right paratracheal adenopathy kacy uring 4.5 cm. Subcarinal adenopathy measuring 1.8 cm. Endotracheal tube and NG tube appear to be appr opriately placed. No lymph nodes greater than 1cm. UPPER ABDOMEN: No significant abnormality is seen. OTHER: No significant other abnormality. IMPRESSION: 1. Extensive mediastinal adenopathy as well as supraclavicular adenopathy. 2. Bilateral pleural effusions and basilar atelectasis and/or infiltrates. 3. Thoracic aorta appears to be of normal caliber.
[2022-08-18] MEDS ORDERED: CISATRACURIUM 200 MG in SODIUM CHLORIDE 0.9% 180 ML IV SCH (14:00)
--- NOTE | 2022-08-18 14:03 | CT ---
EXAMINATION TYPE: CT facial bones wo con DATE OF EXAM: 08/18/2022 COMPARISON: None HISTORY: Fall, r/o facial bone fracture CT DLP: 708.7 mGycm Automated exposure control for dose reduction was used. TECHNIQUE: CT scan of the sinuses is performed without contrast, axial images are obtained, coronal r eformatted images are also reviewed. FINDINGS: Endotracheal and oral gastric tube are incidentally noted. There is nasal septal deviation. There is a mildly depressed fracture of the maxillary styloid. Adjac ent soft tissue edema. Retained secretions within the nails of the pharynx and nasal passage is noted. Orbits are intact. In tracranial structures demonstrate generalized degenerative change. Mucosal thickening involving the paranasal sinuses compatible with mild chronic sinusitis. Mandibles intact. Orbits are intact. Maxillary sinuses are intact. Tiny metallic densities seen in the subcutan eous tissues of the nose IMPRESSION: 1. There is a mildly depressed fracture involving the maxillary styloid base the nose. Adjacent soft tissue edema noted. Tiny metallic densities in the subcutaneous tissues could represent small foreign body.
[2022-08-18] MEDS: ARTIFICIAL TEARS-HYPROMELLOSE DROPS 15 ML BTL BOTH EYES SCH ×2 (16:05→20:14)
[2022-08-18] MEDS ORDERED: SODIUM CHLORIDE 0.9% 1,000 ML IV ONE (16:50)
[2022-08-18 17:31] LABS: ABG Base Excess -5.8 mmol/L; ABG HCO3 24 mmol/L (21-25); ABG Oxygen Saturation 92.5 % (94-97); ABG PO2 89 mmHg (83-108); ABG TCO2 26 mmol/L (19-24); Allen Test Performed? Yes
[2022-08-18 17:33] LABS: ABG PCO2 78 mmHg (35-45)
[2022-08-18] MEDS: PIPERACILLIN-TAZOBACTAM 3.375 GM in SODIUM CHLORIDE 0.9% 100 ML IVPB SCH (18:55)
[2022-08-18 19:44] LABS: ABG Base Excess -4.9 mmol/L; ABG HCO3 23 mmol/L (21-25); ABG Oxygen Saturation 93.8 % (94-97); ABG PCO2 57 mmHg (35-45); ABG PH 7.21 (7.35-7.45); ABG PO2 81 mmHg (83-108); ABG TCO2 25 mmol/L (19-24); Allen Test Performed? Yes
[2022-08-18] MEDS: NOREPINEPHRINE 4 MG in SODIUM CHLORIDE 0.9% 250 ML IV SCH (19:54)
--- NOTE | 2022-08-18 21:38 | EEG ---
ELECTROENCEPHALOGRAM REPORT PREAMBLE: This is a 67-year-old male with altered mental status, rule out status. EEG FINDINGS: This is a 21-channel digital EEG recorded with video component, utilizing 10/20 International System with referential and bipolar montages. Background starts and continues with presence of diffuse severely low-amplitude mixed theta and delta slowing seen diffusely in bihemispheric region. Background does not seem to be reactive to eye opening or closing. Photic driving response was not seen. Different stages of sleep were not seen. No focal or generalized epileptiform activity was seen. The patient initially was on propofol 40 mcg/kg/minute. It was then decreased to 20 mcg/kg/minute, without any improvement in electrographic activity. IMPRESSION: This is a severely abnormal EEG due to diffuse background slowing and low-amplitude activity seen diffusely in bihemispheric region, suggestive of severe encephalopathy. No epileptiform activity was seen. MMODL / IJN: [id number] /
--- NOTE | 2022-08-19 00:05 | P.PCN ---
Date of Procedure: 08/19/22 Preoperative Diagnosis: Hypotension and shock Postoperative Diagnosis: Hypotension and shock Procedure(s) Performed: Insertion of a right radial arterial line Indications for Procedure: Continuous blood pressure monitoring and frequent blood draws Description of Procedure: Informed consent was obtained, and a procedural timeout was performed . The patient was placed in supine position. The right radial region was prepared in a sterile fashion, and a sterile drape was applied. The right radial artery was palpated, easily cannulated, and a guidewire was placed. A Cook catheter was inserted over the guidewire, and the guidewire was removed. There was good arterial blood flow, good arterial waveform, and no complications. The line was secured with using a 3-0 silk suture. This procedure was supervised and completed without any complications.
--- NOTE | 2022-08-19 00:18 | CT ---
EXAMINATION TYPE: CT chest abdomen w con DATE OF EXAM: 08/18/2022 INDICATION: mediastinal adenopathy COMPARISON: 08/18/2022 CT DLP: 903.9 mGycm CONTRAST: Performed without Oral Contrast and with IV Contrast, patient injected with 100 mL of Isovue 300. TECHNIQUE: Axial images at 5 mm thick sections. Reconstructed images in the coronal plane. Delayed images through the kidneys. FINDINGS: CT CHEST: The patient is intubated with the tip above the alvaro. There is enlarged right supraclavicular adenopathy measuring 1.9 cm. Additional right supraclavicula r adenopathy is present which may measure up to 2.6 cm in size. This appears more apparent on the el or study. There is an enlarged superior mediastinal lymph nodes. These are compressing the superior vena cava. Additional Enlarged anterior superior mediastinal lymph nodes are present. There is an enlarged node adjacent to the aortic arch measuring 2.7 cm. Enlarged Pretracheal lymphadenopathy and subcarinal karen nopathy is present. Right hilar adenopathy is present. These areas are enlarged by CT criteria. The ascending aorta diameter at the level of the main pulmonary artery is 3.1 cm. The main pulmonary artery diameter at the bifurcation is 2.6 cm. There is a small right pleural effusion. Minimal left pleural effusion is present with adjacent compr essive atelectasis is present. CT ABDOMEN: Enlarged lymphadenopathy within the abdomen is not evident. No enlarged retrocaval or per iaortic adenopathy is evident. No enlarged retroperitoneal adenopathy is evident. Liver: Liver appears heterogenous. Multiple metastatic lesions be considered. The largest is within t he mid medial right lobe liver measuring 2.6 cm. Spleen: Normal Pancreas: Normal Adrenal glands: The adrenal glands are normal. Gallbladder: Normal Kidneys: No masses are evident. No hydronephrosis is present. No cysts are present. Aorta: Vascular calcification is within the aorta. Inferior vena cava: Normal. Bowel: The colon appears air and fecal debris filled but not dilated. No enlarged small bowel loops a re evident. Studies without oral contrast. IMPRESSIONS: 1. Enlarged superior mediastinal, pretracheal, right hilar, and right supraclavicular adenopathy. Thi s may be compressing the superior vena cava. Correlate for superior vena cava syndrome. 2. Multiple ill-defined hypoechoic density areas within the liver suspicious for multiple metastatic lesions. 3. Small right and minimal left pleural effusion with adjacent infiltrate. Correlate for compressive atelectasis
[2022-08-19] MEDS: SODIUM CHLORIDE 0.9% 1,000 ML IV SCH ×2 (00:30→09:35)
[2022-08-19] MEDS: PIPERACILLIN-TAZOBACTAM 3.375 GM in SODIUM CHLORIDE 0.9% 100 ML IVPB SCH ×2 (00:31→09:40)
[2022-08-19] MEDS: ARTIFICIAL TEARS-HYPROMELLOSE DROPS 15 ML BTL BOTH EYES SCH ×4 (00:31→12:26)
[2022-08-19 00:45] LABS: Glucose,Whole Blood 92 mg/dL (70-110)
[2022-08-19] MEDS: VASOPRESSIN 20 UNIT in SODIUM CHLORIDE 0.9% 50 ML IV SCH ×3 (01:09→14:46)
[2022-08-19] MEDS: NOREPINEPHRINE 4 MG in SODIUM CHLORIDE 0.9% 250 ML IV SCH ×2 (02:22→06:31)
[2022-08-19] MEDS: IPRATROPIUM-ALBUTEROL 3 ML NEB INHALATION SCH ×4 (03:31→14:39)
[2022-08-19 04:26] LABS: HCT 22.7 % (39.0-53.0); HGB 7.4 gm/dL (13.0-17.5); Hypochromasia Moderate; MCH 32.2 pg (25.0-35.0); MCHC 32.5 g/dL (31.0-37.0); MCV 98.9 fL (80.0-100.0); Macrocytosis Slight; Mean Platelet Volume 8.4; Platelet Count 168 k/uL (150-450); RDW 15.3 % (11.5-15.5)
[2022-08-19 04:51] LABS: Calcium 8.3 mg/dL (8.4-10.2); Potassium 5.3 mmol/L (3.5-5.1)
[2022-08-19 05:05] LABS: ABG Base Excess -8.8 mmol/L; ABG HCO3 20 mmol/L (21-25); ABG Oxygen Saturation 93.5 % (94-97); ABG PCO2 56 mmHg (35-45); ABG PO2 81 mmHg (83-108); ABG TCO2 22 mmol/L (19-24); Allen Test Performed? Yes
[2022-08-19 05:09] LABS: ABG PH 7.16 (7.35-7.45)
[2022-08-19] MEDS ORDERED: SODIUM CHLORIDE 0.9% 1,000 ML IV ONE (05:15)
[2022-08-19 05:26] LABS: Band Neutrophils % 20 %; Metamyelocytes % 3 %; Neutrophils % (M) 56 %; Nucleated Red Blood Cells 18 /100 WBC (0-0); Total Cells Counted 200
[2022-08-19 05:27] LABS: Anisocytosis (M) Present; Hypochromasia (M) Present; Lymphocytes # (M) 0.27 k/uL (1.0-4.8); Metamyelocytes # (M) 0.04 k/uL (0); Polychromasia Present; WBC 1.3 k/uL (3.8-10.6)
[2022-08-19 05:52] VITALS: RESP 30
--- NOTE | 2022-08-19 06:12 | XR ---
EXAMINATION TYPE: XR chest 1V portable DATE OF EXAM: 08/19/2022 CLINICAL HISTORY: Difficulty breathing progress study. TECHNIQUE: 2 AP portable semiupright views of the chest are obtained. COMPARISON: Chest x-ray and CT from one day earlier FINDINGS: Stable endotracheal and orogastric tubes. Increased lower lung opacities bilaterally. Mediastinal prominence demonstrated corresponds to abnorm al thoracic adenopathy. Cardiac size stable and within normal limits. Osseous structures are intact. IMPRESSION: Small bilateral pleural effusions with abnormal thoracic adenopathy redemonstrated.
--- NOTE | 2022-08-19 07:53 | P.PN ---
Subjective Progress Note Date: 08/19/22 I am seeing this patient in new consultation today 08/18/2022 for ICU management. Patient is a 67-year-old male who was transferred from [facility] last night. Apparently, the patient resides at an [facility] home and presented to [facility] earlier in the day after some facial trauma. According to [facility] records, the patient was evaluated and sent back to the [facility] home. He then developed some altered mentation and agitation, and returned to [facility]. While in the emergency room, the patient reportedly developed some acute worsening confusion and agitation. He required multiple doses of Ativan and Haldol. The patient eventually had to be intubated to protect his airway. Urine tox screen was negative at the outside facility for alcohol or recreational drugs. He was taking a combination of tramadol, SSRIs, and Zyprexa, and there was some concern for Serotonin syndrome or neuromalignant syndrome. The patient was apparently hyperthermic with reported clonus. Identified past medical history from the [facility] includes schizophrenia, bipolar, gastrointestinal malignancy, pathological vertebral fracture of the thoracic vertebra, hypertension, hyperlipidemia, current smoker. On arrival to the emergency room last night, the patient did have a noncontrast CT of the head and c-spine which showed no acute intracranial abnormalities or traumatic fractures. Patient is currently sedated on propofol infusing at 35 mcg/kg/m. He is synchronous with mechanical ventilator with current settings of assist control, respiratory rate 16, tidal volume 400, FiO2 100%, and PEEP of 5. ABG done on these setting shows a pO2 of 98, pCO2 of 43, pH of 7.4. PEEP was increased to 10. Chest x-ray shows an endotracheal tube with tip approximately 6 cm above the alvaro, and oral gastric tube coursing below the diaphragm. No focal consolidation or evidence of pneumonia. Most recent CBC from this morning shows a WBC count 3.9, hemoglobin 7.1, hematocrit 21.3, platelets 162. Most recent BMP from this morning shows a sodium 138, potassium 3.9, chloride 104, serum CO2 27, BUN 34, creatinine 0.84, glucose was 123. Normal saline is infusing at 20 ML's per hour. BP is normotensive. Urine output is in order of approximately 15 ml per hour. He is currently afebrile. Patient will be monitored in the intensive care unit. 10 of 08/19/2022, the patient remains critically ill, in the intensive care unit, intubated on a mechanical ventilator. Noted the patient was quite asy nchronous a mechanical ventilator and based on that, the patient was started on a combination of sedative medications. This morning, he is on propofol which is running at 40 mcg/kg/m and the patient is also on fentanyl at 0.5 mcg/kg/h. The patient is paralyzed with Nimbex running at 1 mcg/kg/m. The patient's quite synchronous mechanical ventilator this point in time. The repeat blood gases showed significant respiratory acidosis. Based on that, the patient was placed on a assist control mode at the rate of 30, tidal volume of 500, PEEP is currently at 10 with an FiO2 of 80%. Blood gases showed a pH of 7.16 with a pCO2 of 56 and pO2 of 81. There was concern of a mediastinal mass. Initial CAT scan was done without contrast. Subsequently, the patient had a contrast enhanced CAT scan of the chest and abdomen. In summary, the findings are quite abnormal and suggestive of metastatic malignancy. The patient has enlarged superior mediastinal, pretracheal, right hilar and right supraclavicular lymphadenopathy. There is also compression at the level of the superior vena cava. Clinically however, the patient does not have SVC syndrome. He does have supraclavicular lymphadenopathy on physical examination. At the same time, there are multiple ill-defined hypoechoic densities involving the liver suspicious of metastases. There is a small right-sided pleural effusion and a minimal left-sided pleural effusion. Hemodynamically, the patient is somewhat hypotensive. He is currently on norepinephrine at 0.28 mcg/kg/m and vasopressin was also started yesterday at physiologic dose. He has developed an acute kidney injury. Creatinine is up to 1.7 with a BUN of 38. Rest of the electrolytes are stable with a potassium level of 5.3. Hematology profile is also abnormal. The white cell count is down to 1.3. Platelet counts are stable at 168. Hemoglobin stable at 7.4. The patient was given 2 L IV fluid or less yesterday morning an additional 2 L were given at the later stage bringing him up to a total of 4 L IV fluid bolus. His overall fluid balance is +6.5 L over t he past 24 hours. His covered with IV Zosyn as an empiric antibiotic coverage. Objective - Vital Signs Vital signs: Vital Signs Temp 99.3 F 08/19/22 04:30 Pulse 116 H 08/19/22 07:00 Resp 30 H 08/19/22 07:00 BP 106/63 08/19/22 07:00 Pulse Ox 92 L 08/19/22 07:00 FiO2 80 08/19/22 07:36 Intake & Output 08/18/22 08/19/22 08/19/22 18:59 06:59 18:59 Intake Total 4393.72 2919.917 5.486 Output Total 535 215 Balance 3858.72 2704.917 5.486 Weight 72 kg 70.2 kg Intake: IV 4200 2200 0.9 1200 1200 Sodium Chloride 0.9% 1, 1000 000 ml @ 999 mls/hr IV . Q1H1M [facility] Rx#:[id number] Sodium Chloride 0.9% 500 3000 ml 500 ml @ 999 mls/hr IV .Q31M [facility] Rx#:[id number] Intake, IV Titration 193.72 679.917 5.486 Amount Norepinephrine 4 mg In 445.545 5.486 Sodium Chloride 0.9% 250 ml @ 0.03 MCG/KG/MIN 8.23 mls/hr IV .Q24H [facility] Rx#: [id number] Sodium Chloride 0.9% 80 47.64 34.50 ml @ 1 MCG/KG/HR 7.2 mls/ hr IV .[id number] TISH with fentaNYL (PF) 1,000 mcg Rx#:[id number] propofoL 1,000 mg In 146.08 Empty Bag 1 bag @ 15 MCG/ KG/MIN 6.48 mls/hr IV . [id number] [facility] Rx#:[id number] propofoL 1,000 mg In 199.872 Empty Bag 1 bag @ 15 MCG/ KG/MIN 6.48 mls/hr IV . [id number] [facility] Rx#:[id number] Tube Feeding 40 Output: Urine 535 215 Other: Voiding Method Indwelling Catheter Indwelling Catheter ABP, PAP, CO, CI - Last Documented Arterial Blood Pressure 84/49 - Exam GENERAL EXAM: Sedated and synchronous with mechanical ventilator, currently sedated and paralyzed. HEAD: Normocephalic. There are multiple facial abrasions and ecchymosis EYES: Normal reaction of pupils, equal size. NOSE: Clear with pink turbinates. THROAT: No erythema or exudates. NECK: No masses, no JVD. The patient has extensive right supraclavicular lymphadenopathy with from lesions palpated on today's examination CHEST: No chest wall deformity. LUNGS: Equal air entry with no crackles, wheeze, rhonchi or dullness. Intubated to the mechanical ventilator CVS: S1 and S2 normal with no audible murmur, regular rhythm. No extra heart sounds ABDOMEN: No hepatosplenomegaly, active bowel sounds, no guarding or rigidity. SPINE: No scoliosis or deformity SKIN: Multiple abrasions located on bilateral lower extremity some CENTRAL NERVOUS SYSTEM: No focal deficits noted. Patient responds to painful stimuli only, and is currently sedated on propofol. The patient is also receiving fentanyl. The patient is paralyzed with Nimbex. EXTREMITIES: There is no peripheral edema, clubbing, or cyanosis. Peripheral pulses are intact. - Labs CBC & Chem 7: 08/19/22 04:16 08/19/22 04:16 Labs: Abnormal Lab Results - Last 24 Hours (Table) 08/18/22 08/18/22 08/18/22 Range/Units 12:59 17:28 19:40 WBC (3.8-10.6) k/uL RBC (4.30-5.90) m/uL Hgb (13.0-17.5) gm/dL Hct (39.0-53.0) % Neutrophils # (Manual) (1.3-7.7) k/uL Lymphocytes # (Manual) (1.0-4.8) k/uL Metamyelocytes # (Man) (0) k/uL Nucleated RBCs (0-0) /100 WBC ABG pH 7.10 L* 7.21 L (7.35-7.45) ABG pCO2 78 H* 57 H (35-45) mmHg ABG pO2 81 L (83-108) mmHg ABG HCO3 (21-25) mmol/L ABG Total CO2 26 H 25 H (19-24) mmol/L ABG O2 Saturation 92.5 L 93.8 L (94-97) % Potassium (3.5-5.1) mmol/L Chloride (98-107) mmol/L Carbon Dioxide (22-30) mmol/L BUN (9-20) mg/dL Creatinine (0.66-1.25) mg/dL Calcium (8.4-10.2) mg/dL Ammonia 64 H (<30) umol/L 08/19/22 08/19/22 08/19/22 Range/Units 04:16 04:16 05:00 WBC 1.3 L* (3.8-10.6) k/uL RBC 2.30 L (4.30-5.90) m/uL Hgb 7.4 L (13.0-17.5) gm/dL Hct 22.7 L (39.0-53.0) % Neutrophils # (Manual) 0.90 L (1.3-7.7) k/uL Lymphocytes # (Manual) 0.27 L (1.0-4.8) k/uL Metamyelocytes # (Man) 0.04 H (0) k/uL Nucleated RBCs 18 H (0-0) /100 WBC ABG pH 7.16 L* (7.35-7.45) ABG pCO2 56 H (35-45) mmHg ABG pO2 81 L (83-108) mmHg ABG HCO3 20 L (21-25) mmol/L ABG Total CO2 (19-24) mmol/L ABG O2 Saturation 93.5 L (94-97) % Potassium 5.3 H (3.5-5.1) mmol/L Chloride 114 H (98-107) mmol/L Carbon Dioxide 21 L (22-30) mmol/L BUN 38 H (9-20) mg/dL Creatinine 1.72 H (0.66-1.25) mg/dL Calcium 8.3 L (8.4-10.2) mg/dL Ammonia (<30) umol/L Microbiology - Last 24 Hours (Table) 08/18/22 02:42 Sputum Culture - Preliminary Sputum Assessment and Plan Assessment: Acute hypoxic/hypercapnic respiratory failure, currently intubated on a mechanical ventilator. The patient has extensive mediastinal lymphadenopathy with compression of the SVC. The patient also has supraclavicular lymphadenopathy and overall picture is consistent with malignancy special that the patient has metastatic lesions to his liver. Rule out metastatic lung cancer. Lymphoma is less likely possibility at this point in time. Chest x-ray was noted. Blood gases was noted. The patient has a component of respiratory acidosis with ongoing hypoxemia. Acute hypotension/shock. Rule out cardiogenic. Rule out septic in nature. The patient was given a total of 4 L of IV fluids and the patient is currently on a combination of present including norepinephrine and vasopressin. Acute kidney injury, rule out ATN secondary to hypotension. Contrast-induced nephropathy is a possibility although less likely Leukopenia, with interval drop in the white cell count to 1.3 Anemia of chronic disease Altered mental status and agitation currently under investigation. He did require multiple doses of Ativan and Haldol at outside facility, and eventually had to be intubated to protect his airway. Non contrast CT of brain and c-spine shows no acute intracranial abnormality. Urine tox drug screen was negative for recreational drugs or alcohol. History of schizophrenia and He was taking a combination of tramadol, SSRIs, and Zyprexa y. Reported history of unknown gastrointestinal malignancy and pathological vertebral fracture of the thoracic vertebra Hypertension Hyperlipidemia Current smoker Plan: This patient is critically ill with poor prognosis based on the above-mentioned comorbidities. Obviously there is underlying metastatic malignancy needs to be further diagnosed. We'll consult interventional radiology and asked him to biopsy the supraclavicular lymph nodes We'll keep the patient sedated and paralyzed for today We'll continue ventilator support, no ventilator changes will be done for today Continue IV fluids in the form of normal saline at the rate of 100 mL an hour Continue IV Zosyn Obtain an echocardiogram to evaluate LV function Keep the patient on a combination of propofol and fentanyl Continue Nimbex Initiate enteral feeding for nutritional support Consult nephrology regarding acute kidney injury Monitor hematologic profile Continue the rest of the supportive care. Lines will be established. Patient remains critically ill. Prognosis poor based on the above. His ventilation within a more than 30 minutes. Time with Patient: Greater than 30
--- NOTE | 2022-08-19 08:07 | P.PCN ---
Date of Procedure: 08/19/22 Preoperative Diagnosis: Hypotension/shock Postoperative Diagnosis: Hypotension/shock Procedure(s) Performed: Central line catheter insertion Anesthesia: local Surgeon: Irineo Jones Estimated Blood Loss (ml): 0 Pathology: other Condition: critical Disposition: ICU Operative Findings: Indication: Hemodynamic monitoring/Intravenous access. A time-out was completed verifying correct patient, procedure, site, positioning, and implant(s) or special equipment if applicable. The patient was placed in a dependent position appropriate for central line placement based on the vein to be cannulated. The patients right groin was prepped and draped in sterile fashion. 1% Lidocaine was used to anesthetize the surrounding skin area. A triple lumen 9F Cordis catheter was introduced into the right common femoral vein using Seldinger technique. The catheter was threaded smoothly over the guide wire and appropriate blood return was obtained. Each lumen of the catheter was evacuated of air and flushed with sterile saline. The catheter was then sutured in place to the skin and a sterile dressing applied. Perfusion to the extremity distal to the point of catheter insertion was checked and found to be adequate. The patient tolerated the procedure well and there were no complications.
[2022-08-19] MEDS: NOREPINEPHRINE 8 MG in SODIUM CHLORIDE 0.9% 250 ML IV SCH ×3 (09:29→14:47)
[2022-08-19 09:30] LABS: Albumin 2.1 g/dL (3.5-5.0); Bilirubin, Conjugated 0.2 mg/dL (0.0-0.3); Bilirubin, Delta 1.1 mg/dL (0.0-0.2); Bilirubin,Unconjugated 0.2 mg/dL (0.0-1.1); Total Bilirubin 1.5 mg/dL (0.2-1.3); Total Protein 4.7 g/dL (6.3-8.2)
[2022-08-19] MEDS: PANTOPRAZOLE 40 MG/10 ML VIAL IV SCH (09:37)
[2022-08-19] MEDS: HEPARIN SODIUM,PORCINE/PF 5,000 UNIT/0.5 ML SYRINGE SQ SCH (09:39)
[2022-08-19] MEDS: CHLORHEXIDINE GLUCONATE 15 ML CUP MUCOUS MEM SCH (09:39)
[2022-08-19] MEDS ORDERED: SODIUM CHLORIDE 0.9% 2,000 ML IV ONE (09:56)
--- NOTE | 2022-08-19 11:06 | P.CN ---
Psychiatric Consult - . Consult date: 08/19/22 Consult:: IDENTIFYING DATA: This patient is a 67-year-old male with a significant history of bipolar disorder, schizophrenia, and gastrointestinal malignancy. He is a current resident at an [facility] home, who presented to our hospital from [facility] for evaluation of possible serotonin syndrome. HISTORY OF PRESENT ILLNESS: The patient presented to the hospital on 08/17/2022 after being transferred from [facility]. Initially, the patient experienced a fall and head trauma and presented to the ED at [facility] and was subsequently discharged after scans were negative. The patient was then noted to display AMS and was brought back to [facility] ED where the patient required multiple doses of haldol and ativan due to confusion and agitation. He was subsequently transferred to [facility] due to concern for serotonin syndrome or neuroleptic malignant syndrome as the patient reportedly displayed clonus and was hyperthermic. The patient was subsequently transferred to our ICU. Psychiatry has been consulted for evaluation of serotonin syndrome. Patient is currently intubated and is a poor historian at this time. However on CT scan of chest and abdomen with contrast, findings were significant for metatstatic malignancy. Currently the patient is sedated. He is tachycardic, tachypneic, and febrile. Unable to appreciate clonus on examination. Patient has history of schizophrenia. He was receiving Prozac, Zyprexa, and Tramdol placing him at increased risk for serotonin syndrome. Collateral information was obtained by the patient's cutter hot knife Talita Mcclain. She reports that the patient has been under her care for the past 23 years. She states at baseline, the patient is appropriate, takes care of his ADLs, and converses normally. She reports that he was acting bizarre, confused, and agitated after presenting to [facility] ED and being placed on Tramadol for back pain. He was then brought back to [facility] ED and transferred to [facility]. PAST PSYCHIATRIC HISTORY: Patient has a a history of history of schizophrenia and bipolar disorder. Patient's cutter hot knife confirms the patient is on zyprexa, prozac, and depakote. She reports the patient has not had a psychiatric admission in the 23 years she has been caring for him. Patient is open with [facility]. The patient's cutter hot knife denies any history of suicide attempts over the past 23 years. PAST MEDICAL HISTORY: Past Medical History: GERD/Reflux, Hyperlipidemia, Hypertension Additional Past Medical History / Comment(s): chronic back pain, per caregiver Pt is on a fluid restriction for "low sodium" History of Any Multi-Drug Resistant Organisms: None Reported Past Surgical History: Hernia Repair Past Anesthesia/Blood Transfusion Reactions: No Reported Reaction Past Psychological History: Bipolar, Schizophrenia Additional Psychological History / Comment(s): Pt caregiver states Pt's mood has been stable for 23 years prior to now Smoking Status: Current every day smoker Past Alcohol Use History: None Reported Additional Past Alcohol Use History / Comment(s): 03/25-03/23 PPD Past Drug Use History: None Reported ALLERGIES: Lisinopril, Naproxen. CHEMICAL DEPENDENCY HISTORY: Patient's cutter hot knife report no significant substance use history for the patient for the past 23 years. FAMILY PSYCHIATRIC/SUBSTANCE USE HISTORY: Unknown. SOCIAL HISTORY: Patient is single, never , and has no children. Currently a resident at an [facility] home. MENTAL STATUS EXAM: General Appearance: Patient is currently intubated and sedated and on mechanical ventilator. Multiple facial abrasions and ecchymosis present. Behavior: Sedated and paralyzed. Speech: Unable to assess. Mood/Affect: Unable to assess. Suicidality/Homicidality: Unable to assess. Perceptions: Unable to assess. Though content/process: Unable to assess. Memory and concentration: Unable to assess. Judgment and insight: Unable to assess. IMPRESSIONS: Altered mental status - Likely multifactorial - Acute toxic metabolic encephalopathy vs Sepsis, vs Serotonin syndrome (Tramadol, Zyprexa, and Prozac combination - patient reportedly presented with clonus, AMS, and hyperthermia). 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 -At this time patient DOES NOT meet criteria for inpatient psychiatric admission. Patient is currently intubated and not medically appropriate for psychiatric placecment. Suspect AMS secondary to above. -Would recommend the following medication changes/additions: Agree to hold Serotonergic medications. Hold Prozac, Zyprexa, Tramadol. - Treatment for serotonin syndrome is supportive. May consider Cyproheptadine. - Psychiatry will sign off at this time. Once patient is extubated and more appropriate for psychiatric interview, please reconsult if necessary. Vital Signs Temp 100.6 F H 08/19/22 08:00 Pulse 123 H 08/19/22 10:15 Resp 30 H 08/19/22 10:15 BP 106/63 08/19/22 07:00 Pulse Ox 86 L 08/19/22 09:00 FiO2 80 08/19/22 08:00 Intake & Output 08/18/22 08/19/22 08/19/22 18:59 06:59 18:59 Intake Total 4393.72 2919.917 2635.527 Output Total 535 215 75 Balance 3858.72 2704.917 2560.527 Weight 72 kg 70.2 kg Intake: IV 4200 2200 2400 0.9 1200 1200 300 Piperacillin-Tazobactam 3 100 .375 gm In Sodium Chloride 0.9% 100 ml @ 25 mls/hr IVPB Q8HR [facility] Rx# :[id number] Sodium Chloride 0.9% 1, 1000 2000 000 ml @ 999 mls/hr IV . Q1H1M [facility] Rx#:[id number] Sodium Chloride 0.9% 500 3000 ml 500 ml @ 999 mls/hr IV .Q31M [facility] Rx#:[id number] Intake, IV Titration 193.72 679.917 175.527 Amount Norepinephrine 4 mg In 445.545 111.602 Sodium Chloride 0.9% 250 ml @ 0.03 MCG/KG/MIN 8.23 mls/hr IV .Q24H [facility] Rx#: [id number] Norepinephrine 8 mg In 28.888 Sodium Chloride 0.9% 250 ml @ 0.03 MCG/KG/MIN 4. 075 mls/hr IV .Q24H [facility] Rx#:[id number] Sodium Chloride 0.9% 80 47.64 34.50 ml @ 1 MCG/KG/HR 7.2 mls/ hr IV .[id number] [facility] with fentaNYL (PF) 1,000 mcg Rx#:[id number] Vasopressin 20 unit In 35.037 Sodium Chloride 0.9% 50 ml @ 0.03 UNITS/MIN 4.59 mls/hr IV .Q11H7M [facility] Rx# :[id number] propofoL 1,000 mg In 146.08 Empty Bag 1 bag @ 15 MCG/ KG/MIN 6.48 mls/hr IV . [id number] [facility] Rx#:[id number] propofoL 1,000 mg In 199.872 Empty Bag 1 bag @ 15 MCG/ KG/MIN 6.48 mls/hr IV . [id number] [facility] Rx#:[id number] Tube Feeding 40 30 Other 30 Output: Urine 535 215 75 Other: Voiding Method Indwelling Catheter Indwelling Catheter Indwelling Catheter ABP, PAP, CO, CI - Last Documented Arterial Blood Pressure 74/46 Laboratory Results WBC 1.3 k/uL (3.8-10.6) L* 08/19/22 04:16 RBC 2.30 m/uL (4.30-5.90) L 08/19/22 04:16 Hgb 7.4 gm/dL (13.0-17.5) L 08/19/22 04:16 Hct 22.7 % (39.0-53.0) L 08/19/22 04:16 MCV 98.9 fL (80.0-100.0) 08/19/22 04:16 MCH 32.2 pg (25.0-35.0) 08/19/22 04:16 MCHC 32.5 g/dL (31.0-37.0) 08/19/22 04:16 RDW 15.3 % (11.5-15.5) 08/19/22 04:16 Plt Count 168 k/uL (150-450) 08/19/22 04:16 MPV 8.4 08/19/22 04:16 Neutrophils % 63 % 08/18/22 00:38 Neutrophils % (Manual) 56 % 08/19/22 04:16 Band Neuts % (Manual) 20 % 08/19/22 04:16 Lymphocytes % 27 % 08/18/22 00:38 Lymphocytes % (Manual) 21 % 08/19/22 04:16 Monocytes % 6 % 08/18/22 00:38 Eosinophils % 0 % 08/18/22 00:38 Basophils % 1 % 08/18/22 00:38 Metamyelocytes % 3 % 08/19/22 04:16 Neutrophils # 2.4 k/uL (1.3-7.7) 08/18/22 00:38 Neutrophils # (Manual) 0.90 k/uL (1.3-7.7) L 08/19/22 04:16 Lymphocytes # 1.0 k/uL (1.0-4.8) 08/18/22 00:38 Lymphocytes # (Manual) 0.27 k/uL (1.0-4.8) L 08/19/22 04:16 Monocytes # 0.2 k/uL (0-1.0) 08/18/22 00:38 Eosinophils # 0.0 k/uL (0-0.7) 08/18/22 00:38 Basophils # 0.0 k/uL (0-0.2) 08/18/22 00:38 Metamyelocytes # (Man) 0.04 k/uL (0) H 08/19/22 04:16 Nucleated RBCs 18 /100 WBC (0-0) H 08/19/22 04:16 Manual Slide Review Performed 08/19/22 04:16 Polychromasia Present 08/19/22 04:16 Hypochromasia Moderate 08/19/22 04:16 Hypochromasia (manual) Present 08/19/22 04:16 Anisocytosis (manual) Present 08/19/22 04:16 Macrocytosis Slight 08/19/22 04:16 Sample Site [place] 08/19/22 05:00 ABG pH 7.16 (7.35-7.45) L* 08/19/22 05:00 ABG pCO2 56 mmHg (35-45) H 08/19/22 05:00 ABG pO2 81 mmHg (83-108) L 08/19/22 05:00 ABG HCO3 20 mmol/L (21-25) L 08/19/22 05:00 ABG Total CO2 22 mmol/L (19-24) 08/19/22 05:00 ABG O2 Saturation 93.5 % (94-97) L 08/19/22 05:00 ABG Base Excess -8.8 mmol/L 08/19/22 05:00 Keith Test Yes 08/19/22 05:00 FiO2 80 % 08/19/22 05:00 Sodium 143 mmol/L (137-145) 08/19/22 04:16 Potassium 5.3 mmol/L (3.5-5.1) H 08/19/22 04:16 Chloride 114 mmol/L (98-107) H 08/19/22 04:16 Carbon Dioxide 21 mmol/L (22-30) L 08/19/22 04:16 Anion Gap 8 mmol/L 08/19/22 04:16 BUN 38 mg/dL (9-20) H 08/19/22 04:16 Creatinine 1.72 mg/dL (0.66-1.25) H 08/19/22 04:16 Est GFR (CKD-EPI)AfAm 47 (>60 ml/min/1.73 sqM) 08/19/22 04:16 Est GFR (CKD-EPI)NonAf 40 (>60 ml/min/1.73 sqM) 08/19/22 04:16 Glucose 84 mg/dL (74-99) 08/19/22 04:16 POC Glucose (mg/dL) 92 mg/dL (70-110) 08/19/22 00:45 POC Glu Product Lister ID Marisol Huang 08/19/22 00:45 Plasma Lactic Acid Derrek 4.3 mmol/L (0.7-2.0) H* 08/19/22 08:35 Calcium 8.3 mg/dL (8.4-10.2) L 08/19/22 04:16 Magnesium 2.4 mg/dL (1.6-2.3) H 08/18/22 00:38 Total Bilirubin 1.5 mg/dL (0.2-1.3) H 08/19/22 08:35 Conjugated Bilirubin 0.2 mg/dL (0.0-0.3) 08/19/22 08:35 Unconjugated Bilirubin 0.2 mg/dL (0.0-1.1) 08/19/22 08:35 Delta Bilirubin 1.1 mg/dL (0.0-0.2) H 08/19/22 08:35 AST 1428 U/L (17-59) H 08/19/22 08:35 ALT 289 U/L (4-49) H 08/19/22 08:35 Alkaline Phosphatase 344 U/L (38-126) H 08/19/22 08:35 Ammonia 64 umol/L (<30) H 08/18/22 12:59 CK-MB (CK-2) 1.7 ng/mL (0.0-2.4) 08/18/22 12:59 Total Protein 4.7 g/dL (6.3-8.2) L 08/19/22 08:35 Albumin 2.1 g/dL (3.5-5.0) L 08/19/22 08:35 Lipase 204 U/L (23-300) 08/17/22 21:29 TSH 1.650 mIU/L (0.465-4.680) 08/18/22 12:59 Urine Color Yellow 08/18/22 03:30 Urine Appearance Clear (Clear) 08/18/22 03:30 Urine pH 5.5 (5.0-8.0) 08/18/22 03:30 Ur Specific Harvel 1.018 (1.001-1.035) 08/18/22 03:30 Urine Protein Trace (Negative) H 08/18/22 03:30 Urine Glucose (UA) Negative (Negative) 08/18/22 03:30 Urine Ketones 1+ (Negative) H 08/18/22 03:30 Urine Blood Large (Negative) H 08/18/22 03:30 Urine Nitrite Negative (Negative) 08/18/22 03:30 Urine Bilirubin Negative (Negative) 08/18/22 03:30 Urine Urobilinogen 3.0 mg/dL (<2.0) 08/18/22 03:30 Ur Leukocyte Esterase Negative (Negative) 08/18/22 03:30 Urine RBC 121 /hpf (0-5) H 08/18/22 03:30 Urine WBC 9 /hpf (0-5) H 08/18/22 03:30 Urine Bacteria Rare /hpf (None) H 08/18/22 03:30 Urine Mucus Occasional /hpf (None) H 08/18/22 03:30 Urine Opiates Screen Not Detected (NotDetected) 08/18/22 03:30 Ur Oxycodone Screen Not Detected (NotDetected) 08/18/22 03:30 Urine Methadone Screen Not Detected (NotDetected) 08/18/22 03:30 Ur Propoxyphene Screen Not Detected (NotDetected) 08/18/22 03:30 Ur Barbiturates Screen Detected (NotDetected) H 08/18/22 03:30 Valproic Acid 19.6 ug/mL 08/18/22 10:17 U Tricyclic Antidepress Not Detected (NotDetected) 08/18/22 03:30 Ur Phencyclidine Scrn Not Detected (NotDetected) 08/18/22 03:30 Ur Amphetamines Screen Not Detected (NotDetected) 08/18/22 03:30 U Methamphetamines Scrn Not Detected (NotDetected) 08/18/22 03:30 U Benzodiazepines Scrn Detected (NotDetected) H 08/18/22 03:30 Urine Cocaine Screen Not Detected (NotDetected) 08/18/22 03:30 U Marijuana (THC) Screen Not Detected (NotDetected) 08/18/22 03:30 Treponema pallidum Ab Nonreactive (Nonreactive) 08/18/22 12:59 08/19/22 11:05
[2022-08-19 11:49] LABS: Glucose,Whole Blood 48 mg/dL (70-110)
[2022-08-19] MEDS ORDERED: DEXTROSE 50% SYRINGE 50 ML IVP ONE (11:49)
[2022-08-19 12:11] LABS: Glucose,Whole Blood 139 mg/dL (70-110)
--- NOTE | 2022-08-19 12:19 | P.NPCON ---
History of Present Illness - Reason for Consult acute renal failure - History of Present Illness Reason for consultation: Acute kidney injury History of present illness: Patient is a 67-year-old male seen in renal consultation for acute kidney injury. Patient's baseline creatinine is near 0.8 and is up to 1.72 today. Patient came to the hospital due to altered mental status and also fell. He is noted to have facial trauma. Patient is currently intubated. He is receiving tube feeds. He is on high-dose Levophed as well as vasopressin. Patient has received 6 L of normal saline since admission and is currently maintained on normal saline at 100 mL an hour. Urine output is about 25-30 mL an hour. Patient did receive IV contrast for computed tomography scan on 08/18/2022 which showed no hydronephrosis. However there is concern for malignancy involving liver as well as lymph nodes. Patient has history of schizophrenia and was on multiple antipsychotics as well as SSRIs. He has been evaluated by psychiatry and serotonin syndrome has been ruled out. I don't see any diuretics or nonster oidals and his home medication list. Vital signs - tachycardic. On high-dose vasopressors. General: Resting in bed. HEENT: Intubated. LUNGS: No audible rhonchi or wheezes. HEART: Tachycardic. ABDOMEN: No distention. EXTREMITITES: No edema. Past Medical History Past Medical History: GERD/Reflux, Hyperlipidemia, Hypertension Additional Past Medical History / Comment(s): chronic back pain History of Any Multi-Drug Resistant Organisms: None Reported Past Surgical History: Hernia Repair Past Anesthesia/Blood Transfusion Reactions: No Reported Reaction Past Psychological History: Bipolar, Schizophrenia Smoking Status: Current every day smoker Past Alcohol Use History: None Reported Past Drug Use History: None Reported - Past Family History Father History Unknown: Yes Mother History Unknown: Yes Medications and Allergies Home Medications Medication Instructions Recorded Confirmed Type Ascorbic Acid [Vitamin C] 500 mg PO BID 08/10/22 08/17/22 History Aspirin EC [Ecotrin Low Dose] 81 mg PO DAILY 08/10/22 08/17/22 History Atorvastatin [Lipitor] 40 mg PO HS 08/10/22 08/17/22 History Cholecalciferol [Vitamin D3 (125 125 mcg PO DAILY 08/10/22 08/17/22 History Mcg = 5000 Iu)] Divalproex ER [Depakote ER] ,000 mg PO BID 08/10/22 08/17/22 History FLUoxetine HCL [PROzac] 60 mg PO DAILY 08/10/22 08/17/22 History Famotidine 20 mg PO BID 08/10/22 08/17/22 History Multivitamins, Thera [Multivitamin 1 tab PO DAILY 08/10/22 08/17/22 History (formulary)] OLANZapine ODT [ZyPREXA Zydis] 5 mg PO HS 08/10/22 08/17/22 History OLANZapine [ZyPREXA Zydis] 20 mg PO HS 08/10/22 08/17/22 History Primidone [Mysoline] 50 mg PO HS 08/10/22 08/17/22 History amLODIPine [Norvasc] 2.5 mg PO DAILY 08/10/22 08/17/22 History predniSONE 30 mg PO DAILY 08/10/22 08/17/22 History Nicotine 14Mg/24Hr Patch [Habitrol] 1 patch TRANSDERM DAILY PRN 08/17/22 08/17/22 History Allergies Allergy/AdvReac Type Severity Reaction Status Date / Time lisinopril Allergy Swelling Verified 08/17/22 21:41 naproxen Allergy Swelling Verified 08/17/22 21:41 Physical Exam Vitals: Vital Signs Temp Pulse Resp BP Pulse Ox FiO2 08/19/22 11:08 100 08/19/22 11:00 121 H 30 H 08/19/22 10:45 122 H 30 H 08/19/22 10:30 122 H 30 H 08/19/22 10:15 123 H 30 H 08/19/22 10:00 123 H 30 H 08/19/22 09:45 123 H 30 H 08/19/22 09:30 123 H 30 H 08/19/22 09:15 122 H 30 H 08/19/22 09:00 120 H 30 H 86 L 08/19/22 08:45 118 H 30 H 84 L 08/19/22 08:30 118 H 30 H 08/19/22 08:15 118 H 30 H 86 L 08/19/22 08:00 100.6 F H 118 H 30 H 84 L 80 08/19/22 07:45 116 H 30 H 86 L 08/19/22 07:36 80 08/19/22 07:30 116 H 30 H 88 L 08/19/22 07:15 116 H 30 H 90 L 08/19/22 07:00 116 H 30 H 106/63 92 L 08/19/22 06:45 116 H 30 H 91 L 08/19/22 06:30 115 H 30 H 08/19/22 06:15 115 H 30 H 95 08/19/22 06:00 116 H 30 H 97/72 08/19/22 05:45 117 H 30 H 98/65 92 L 08/19/22 05:30 118 H 30 H 93/67 90 L 08/19/22 05:15 118 H 26 H 98/63 92 L 08/19/22 05:00 120 H 26 H 96/63 93 L 08/19/22 04:45 121 H 26 H 106/71 92 L 08/19/22 04:30 99.3 F 122 H 26 H 106/71 91 L 08/19/22 04:15 122 H 26 H 106/71 92 L 08/19/22 04:00 100.8 F H 121 H 26 H 110/64 92 L 80 08/19/22 03:46 116 H 08/19/22 03:45 118 H 26 H 91 L 08/19/22 03:31 110 H 08/19/22 03:30 117 H 26 H 91 L 08/19/22 03:18 80 08/19/22 03:15 116 H 26 H 92 L 08/19/22 03:00 116 H 26 H 105/69 92 L 08/19/22 02:45 116 H 26 H 89 L 08/19/22 02:30 116 H 26 H 91 L 08/19/22 02:15 115 H 26 H 91 L 08/19/22 02:00 115 H 26 H 105/69 92 L 08/19/22 01:45 115 H 26 H 92 L 08/19/22 01:30 115 H 26 H 93 L 08/19/22 01:15 116 H 26 H 92 L 08/19/22 01:00 98.5 F 116 H 26 H 80 08/19/22 00:45 115 H 26 H 93 L 08/19/22 00:30 115 H 26 H 92 L 08/19/22 00:15 115 H 26 H 92 L 08/19/22 00:00 115 H 26 H 101/68 80 08/18/22 23:45 115 H 26 H 91 L 08/18/22 23:40 118 H 08/18/22 23:30 115 H 26 H 95/67 08/18/22 23:27 118 H 08/18/22 23:26 80 08/18/22 23:15 83/57 08/18/22 23:00 83/57 08/18/22 22:45 114 H 26 H 77/55 91 L 08/18/22 22:30 114 H 34 H 73/55 08/18/22 22:20 114 H 26 H 74/52 91 L 08/18/22 22:15 113 H 26 H 74/52 91 L 08/18/22 22:00 113 H 26 H 72/55 08/18/22 21:45 113 H 26 H 73/53 91 L 08/18/22 21:30 113 H 26 H 78/52 08/18/22 21:15 112 H 26 H 73/56 91 L 08/18/22 21:00 112 H 26 H 72/51 08/18/22 20:45 112 H 26 H 72/53 91 L 08/18/22 20:30 112 H 26 H 72/55 92 L 08/18/22 20:15 112 H 26 H 74/54 92 L 08/18/22 20:00 98.4 F 110 H 26 H 71/51 91 L 80 08/18/22 19:45 110 H 26 H 70/53 91 L 08/18/22 19:36 110 H 08/18/22 19:32 80 08/18/22 19:30 111 H 26 H 73/56 91 L 08/18/22 19:15 110 H 26 H 73/56 91 L 08/18/22 19:00 111 H 26 H 76/56 91 L 08/18/22 18:30 112 H 26 H 79/57 91 L 08/18/22 18:00 113 H 26 H 85/57 91 L 08/18/22 17:30 115 H 16 79/56 90 L 08/18/22 17:00 118 H 16 81/58 89 L 08/18/22 16:30 122 H 16 92/64 08/18/22 16:17 124 H 16 08/18/22 16:13 80 08/18/22 16:00 99 F 126 H 17 107/73 89 L 80 05/30/23 15:30 126 H 17 114/75 89 L 08/18/22 15:00 122 H 16 92/64 90 L 08/18/22 14:30 120 H 16 97/69 91 L 08/18/22 14:00 122 H 18 120/73 88 L 08/18/22 13:30 131/75 80 08/18/22 13:00 122 H 18 127/76 90 L 08/18/22 12:30 121 H 16 112/73 90 L Intake and Output 08/18/22 08/19/22 08/19/22 22:59 06:59 14:59 Intake Total 3727.327 2492.590 3156.015 Output Total 80 200 120 Balance 3647.327 2292.590 3036.015 Intake: IV 3600 1900 2595 0.9 600 900 480 A-line 0.9 15 Piperacillin-Tazobactam 3 100 .375 gm In Sodium Chloride 0.9% 100 ml @ 25 mls/hr IVPB Q8HR [facility] Rx# :[id number] Sodium Chloride 0.9% 1, 1000 2000 000 ml @ 999 mls/hr IV . Q1H1M [facility] Rx#:[id number] Sodium Chloride 0.9% 500 3000 ml 500 ml @ 999 mls/hr IV .Q31M [facility] Rx#:[id number] Intake, IV Titration 127.327 552.590 431.015 Amount Norepinephrine 4 mg In 58.843 386.702 111.602 Sodium Chloride 0.9% 250 ml @ 0.03 MCG/KG/MIN 8.23 mls/hr IV .Q24H [facility] Rx#: [id number] Norepinephrine 8 mg In 184.376 Sodium Chloride 0.9% 250 ml @ 0.03 MCG/KG/MIN 4. 075 mls/hr IV .Q24H [facility] Rx#:[id number] Sodium Chloride 0.9% 80 34.50 ml @ 1 MCG/KG/HR 7.2 mls/ hr IV .[id number] [facility] with fentaNYL (PF) 1,000 mcg Rx#:[id number] Vasopressin 20 unit In 35.037 Sodium Chloride 0.9% 50 ml @ 0.03 UNITS/MIN 4.59 mls/hr IV .Q11H7M [facility] Rx# :[id number] propofoL 1,000 mg In 33.984 165.888 100 Empty Bag 1 bag @ 15 MCG/ KG/MIN 6.48 mls/hr IV . [id number] [facility] Rx#:[id number] Tube Feeding 40 70 Other 60 Output: Urine 80 200 120 Other: Voiding Method Indwelling Catheter Indwelling Catheter Indwelling Catheter Weight 70.2 kg ABP, PAP, CO, CI - Last 8 Hours Arterial Blood Pressure 82/48 Arterial Blood Pressure 84/49 Arterial Blood Pressure 82/49 Arterial Blood Pressure 74/46 Arterial Blood Pressure 70/46 Arterial Blood Pressure 70/46 Arterial Blood Pressure 75/47 Arterial Blood Pressure 84/50 Arterial Blood Pressure 78/47 Arterial Blood Pressure 76/45 Arterial Blood Pressure 84/48 Arterial Blood Pressure 83/48 Arterial Blood Pressure 86/51 Arterial Blood Pressure 79/48 Arterial Blood Pressure 77/47 Arterial Blood Pressure 82/49 Arterial Blood Pressure 84/49 Arterial Blood Pressure 86/49 Arterial Blood Pressure 80/48 Arterial Blood Pressure 84/50 Arterial Blood Pressure 83/50 Arterial Blood Pressure 80/48 Arterial Blood Pressure 73/47 Arterial Blood Pressure 77/48 Arterial Blood Pressure 83/48 Arterial Blood Pressure 80/48 Arterial Blood Pressure 85/50 Results - Lab Results Most recent lab results ABG pH 7.16 (7.35-7.45) L* 08/19/22 05:00 ABG pCO2 56 mmHg (35-45) H 08/19/22 05:00 ABG pO2 81 mmHg (83-108) L 08/19/22 05:00 ABG HCO3 20 mmol/L (21-25) L 08/19/22 05:00 ABG O2 Saturation 93.5 % (94-97) L 08/19/22 05:00 Calcium 8.3 mg/dL (8.4-10.2) L 08/19/22 04:16 Magnesium 2.4 mg/dL (1.6-2.3) H 08/18/22 00:38 08/19/22 04:16 08/19/22 04:16 Assessment and Plan Plan: Assessment: 1. Acute kidney injury secondary to ATN secondary to hypotension/shock. Also received IV contrast on 08/18/2022. Baseline creatinine is 0.8 and is 1.72 today. Urine output 25-30 mL an hour. No hydronephrosis noted on CAT scan. 2. Acute hypoxic/hypercapnic respiratory failure. Intubated. 3. High suspicion for malignancy with mediastinal lymphadenopathy/compression of SVC. 4. Mild metabolic acidosis secondary to lactic acidosis, acute kidney injury and IV fluids. 5. Mild hyperkalemia secondary to acute kidney injury and metabolic acidosis. Plan: Maintain IV fluids. Maintain tube feeds. Change to Nepro. Wean FiO2 and vasopressors as able. 10 g lokelma once today. Continue to monitor renal function and urine output. Continue to assess daily for need for renal replacement therapy. Prognosis guarded. Thank you for the consultation. I will continue to follow the patient is due during his hospital stay.
[2022-08-19] MEDS ORDERED: SODIUM ZIRCONIUM CYCLOSILICATE 10 GM PACKET PO ONE (12:30)
[2022-08-19 12:44] LABS: ABG Base Excess -18.2 mmol/L; ABG HCO3 14 mmol/L (21-25); ABG Oxygen Saturation 97.7 % (94-97); ABG PCO2 61 mmHg (35-45); ABG PO2 139 mmHg (83-108); ABG TCO2 16 mmol/L (19-24)
[2022-08-19] MEDS ORDERED: SODIUM BICARB 8.4% 50 ML SYR (1 MEQ/ML) IV STA (12:49)
[2022-08-19 12:51] LABS: ABG PH 6.96 (7.35-7.45); Allen Test Performed? no
[2022-08-19] MEDS ORDERED: DEXTROSE 5% IN WATER 1,000 ML with SODIUM BICARB (1 MEQ/ML) 150 ML IV SCH (13:00)
[2022-08-19 13:51] VITALS: BMI 23.5
[2022-08-19 15:22] VITALS: BP 95/62
[2022-08-19 15:23] VITALS: TEMP 100.1
[2022-08-19] MEDS ORDERED: LORazepam 2 MG/ML INJ IV PRN (15:48)
[2022-08-19] MEDS ORDERED: MORPHINE SULFATE 4 MG/ML SYRINGE IV PRN (15:48)
[2022-08-19] MEDS ORDERED: MORPHINE SULFATE 2 MG/ML SYRINGE IV PRN (15:48)
[2022-08-19] MEDS ORDERED: ATROPINE OPHTH SOLN 1% 5ML BTL SUBLINGUAL PRN (15:48)
[2022-08-19] MEDS ORDERED: SCOPOLAMINE 1 MG/72 HR PATCH TRANSDERM SCH (16:00)
[2022-08-19 16:06] VITALS: PULSE 116
--- NOTE | 2022-08-19 17:15 | CA ---
Transthoracic Echo Report Name: Jarod Reyes Age: 67 Gender: M : 1955 Exam Date: 08/19/2022 10:12 Exam Location: [place] [facility] Ht (in): 68 Wt (lb): 154 Ordering Physician: Irineo Jones MD Attending/Referring Phys: Radiologist Martha Corral RDCS Procedure CPT: Indications: evaluate LV function Cardiac Hx: Technical Quality: Fair Contrast 1: Total Dose (mL): Contrast 2: Total Dose (mL): MEASUREMENTS (Male / Female) Normal Values 2D ECHO LV Diastolic Diameter PLAX 3.7 cm 4.2 - 5.9 / 3.9 - 5.3 cm LV Systolic Diameter PLAX 2.9 cm IVS Diastolic Thickness 1.0 cm 0.6 - 1.0 / 0.6 - 0.9 cm LVPW Diastolic Thickness 1.0 cm 0.6 - 1.0 / 0.6 - 0.9 cm LV Relative Wall Thickness 0.5 RV Internal Dim ED PLAX 3.3 cm LA Systolic Diameter LX 3.3 cm 3.0 - 4.0 / 2.7 - 3.8 cm M-MODE Aortic Root Diameter MM 3.3 cm AV Cusp Separation MM 2.2 cm DOPPLER AV Peak Velocity 132.7 cm/s AV Peak Gradient 7.0 mmHg MV Area PHT 3.9 cm??? Mitral E Point Velocity 59.0 cm/s Mitral A Point Velocity 75.0 cm/s Mitral E to A Ratio 0.8 MV Deceleration Time 192.2 ms TR Peak Velocity 224.2 cm/s TR Peak Gradient 20.1 mmHg Right Atrial Pressure 15.0 mmHg Pulmonary Artery Systolic Pressu 35.1 mmHg Right Ventricular Systolic Press 35.0 mmHg FINDINGS Left Ventricle Left ventricular ejection fraction is estimated at 50-55 %. Small left ventricular cavity. Left ventricular wall thickness normal. Right Ventricle Mild right ventricular dilatation. Mild pulmonary hypertension. Right Atrium Normal right atrial size. Left Atrium Normal left atrial size. Mitral Valve Mild mitral annular calcification. No mitral stenosis, regurgitation or prolapse. Aortic Valve Trileaflet aortic valve. No aortic valve stenosis or regurgitation. Tricuspid Valve Structurally normal tricuspid valve. Mild tricuspid regurgitation. Pulmonic Valve Pulmonic valve not well visualized. Pericardium Moderate pericardial effusion by RV Aorta Normal size aortic root and proximal ascending aorta. CONCLUSIONS Normal LV systolic function Moderate pericardial effusion without any evidence of tamponade Previewed by: Dr. Al Rushing MD (Electronically Signed) Final Date: 19 Aug 2022 17:13
--- NOTE | 2022-08-19 22:52 | P.DS ---
Providers Date of admission: 08/18/22 00:02 Attending physician: Pedro Duckworth Consults: 08/18/22 00:22 Consult Physician Stat Consulting Provider: Adebayo Green Consult Reason/Comments: AMS Do you want consulting provider notified?: Yes 08/18/22 12:43 Consult Physician Routine Consulting Provider: Brady Fierro Consult Reason/Comments: Rule out serotonin syndrome Do you want consulting provider notified?: Yes 08/19/22 07:53 Consult Physician Stat Consulting Provider: Luisana Benton Consult Reason/Comments: BRITTANI Do you want consulting provider notified?: Yes Primary care physician: Stated None Hospital Course: Diagnoses: Altered mental status most likely secondary to metabolic/toxic encephalopathy, rule out intracranial causes acute hypoxic respiratory failure with airway compromise status post intubation and mechanical ventilation Severe sepsis and possible septic shock, with multiorgan failure Metastatic disease and malignancies is highly suspected given multiple liver ill-defined areas and a large intrathoracic lymphadenopathy SVC compression syndrome suspected Acute renal failure Severe leukopenia Lactic acidosis schizophrenia and bipolar disorder Normochromic, normocytic Anemia Fall with nasal/facial trauma Hypertension Nicotine dependence Hyperlipidemia Chronic low back pain History of GERD History of osteoarthritis Hospital course: This is a pleasant 67 years old male with past medical history of GERD/Reflux, Hyperlipidemia, Hypertension Patient currently intubated and cannot provide information so it was opted from staff And medical records Looks like patient fell and he has facial trauma, pt sent over from [facility] for resp distress after being given multiple medications for his Schizophrenia. Patient was intubated and placed on mechanical ventilation for acute hypoxic respiratory failure, neurology and psychiatry service were consulted for possible serotonin syndrome also pulmonary/critical care team were followed closely Today patient condition deteriorated, it became more hypoxic and she develops fever, antibiotic with Zosyn was added. CT of the chest and abdomen was don't showing a large superior mediastinal and paratracheal and right hilar lymphadenopathy compressing the SVC with SVC compression syndrome suspected. Also patient with multiple ill-defined areas of the liver suspicious for metastatic disease. As well as atelectasis. While facial CT showing depressed fracture Also his labs showing deterioration, WBCs dropped to 1.3K, lactic acid elevated 4 and 6 despite 4 L of normal saline and placed onto pressors and are Levophed and vasopressin, poor condition continued to deteriorate . Patient was placed on antibiotic for suspected infection and septic shock. Also nephrology team are following the patient for acute renal failure several consultants were following the patient closely Despite extensive treatment patient eventually Physical exam prior to expiration -Gen: patient is a intubated and sedated, evidence of nasal trauma CVS: S1-S2, RRR, no murmur Lungs: B/L CTA, no wheezing Abdomen: soft, no distention, no tenderness, positive bowel sounds Extremity: no leg edema or induration Time spent more than 35 minutes Patient Condition at Discharge: Stable Plan - Discharge Summary Discharge Rx Participant: No New Discharge Prescriptions: No Action Ascorbic Acid [Vitamin C] 500 mg PO BID Aspirin EC [Ecotrin Low Dose] 81 mg PO DAILY Atorvastatin [Lipitor] 40 mg PO HS Divalproex ER [Depakote ER] 1,000 mg PO BID Multivitamins, Thera [Multivitamin (formulary)] 1 tab PO DAILY OLANZapine [ZyPREXA Zydis] 20 mg PO HS predniSONE 30 mg PO DAILY Nicotine 14Mg/24Hr Patch [Habitrol] 1 patch TRANSDERM DAILY PRN PRN Reason: Nicotine Cravings amLODIPine [Norvasc] 2.5 mg PO DAILY Cholecalciferol [Vitamin D3 (125 Mcg = 5000 Iu)] 125 mcg PO DAILY Famotidine 20 mg PO BID FLUoxetine HCL [PROzac] 60 mg PO DAILY OLANZapine ODT [ZyPREXA Zydis] 5 mg PO HS Primidone [Mysoline] 50 mg PO HS Discharge Medication List Ascorbic Acid [Vitamin C] 500 mg PO BID 08/10/22 [History] Aspirin EC [Ecotrin Low Dose] 81 mg PO DAILY 08/10/22 [History] Atorvastatin [Lipitor] 40 mg PO HS 08/10/22 [History] Cholecalciferol [Vitamin D3 (125 Mcg = 5000 Iu)] 125 mcg PO DAILY 08/10/22 [History] Divalproex ER [Depakote ER] 1,000 mg PO BID 08/10/22 [History] FLUoxetine HCL [PROzac] 60 mg PO DAILY 08/10/22 [History] Famotidine 20 mg PO BID 08/10/22 [History] Multivitamins, Thera [Multivitamin (formulary)] 1 tab PO DAILY 08/10/22 [History] OLANZapine ODT [ZyPREXA Zydis] 5 mg PO HS 08/10/22 [History] OLANZapine [ZyPREXA Zydis] 20 mg PO HS 08/10/22 [History] Primidone [Mysoline] 50 mg PO HS 08/10/22 [History] amLODIPine [Norvasc] 2.5 mg PO DAILY 08/10/22 [History] predniSONE 30 mg PO DAILY 08/10/22 [History] Nicotine 14Mg/24Hr Patch [Habitrol] 1 patch TRANSDERM DAILY PRN 08/17/22 [History] Follow up Appointment(s)/Referral(s): None,Stated [Primary Care Provider] - 1-2 days Discharge Disposition: - Preliminary Cause of Preliminary Cause of : Septic shock with multiorgan failure, malignancy
== END 2022-08-19 18:20 | disposition expired | DRG 208 ==
LOC: EC 20:47 → 2SICU 08-18 00:02
PROVIDERS: ADMIT Hospitalist; ATTEND Hospitalist
PROC: 5A1945Z Respiratory Ventilation, 24-96 Consecutive Hours (ICD-10-PCS; principal; 2022-08-17)
PROC: 4A133J1 Monitoring of Arterial Pulse, Peripheral, Percutaneous Approach (ICD-10-PCS; 2022-08-19)
PROC: 3E0G76Z Introduction of Nutritional Substance into Upper GI, Via Natural or Artificial Opening (ICD-10-PCS; 2022-08-19)
PROC: 3E043XZ Introduction of Vasopressor into Central Vein, Percutaneous Approach (ICD-10-PCS; 2022-08-19)
PROC: 06HY33Z Insertion of Infusion Device into Lower Vein, Percutaneous Approach (ICD-10-PCS; 2022-08-19)
PROC: 03HY32Z Insertion of Monitoring Device into Upper Artery, Percutaneous Approach (ICD-10-PCS; 2022-08-19)
PROC: 4A133B1 Monitoring of Arterial Pressure, Peripheral, Percutaneous Approach (ICD-10-PCS; 2022-08-19)
DX: J96.01 Acute respiratory failure with hypoxia (principal); A41.9 Sepsis, unspecified organism; G92.8 Other toxic encephalopathy; R65.21 Severe sepsis with septic shock; N17.0 Acute kidney failure with tubular necrosis; J98.11 Atelectasis; C78.7 Secondary malignant neoplasm of liver and intrahepatic bile duct; E87.29 Other acidosis; J90 Pleural effusion, not elsewhere classified; C77.1 Secondary and unspecified malignant neoplasm of intrathoracic lymph nodes; I87.1 Compression of vein; J96.02 Acute respiratory failure with hypercapnia; Z66 Do not resuscitate; F31.9 Bipolar disorder, unspecified; F20.9 Schizophrenia, unspecified; K21.9 Gastro-esophageal reflux disease without esophagitis; G89.29 Other chronic pain; S01.21XA Laceration without foreign body of nose, initial encounter; D63.8 Anemia in other chronic diseases classified elsewhere; D72.819 Decreased white blood cell count, unspecified; I10 Essential (primary) hypertension; T43.225A Adverse effect of selective serotonin reuptake inhibitors, initial encounter; W18.30XA Fall on same level, unspecified, initial encounter; E87.5 Hyperkalemia; F17.210 Nicotine dependence, cigarettes, uncomplicated; M84.48XD Pathological fracture, other site, subsequent encounter for fracture with routine healing; E78.5 Hyperlipidemia, unspecified; M19.90 Unspecified osteoarthritis, unspecified site; M54.50 Low back pain, unspecified; Z88.8 Allergy status to other drugs, medicaments and biological substances; Z85.00 Personal history of malignant neoplasm of unspecified digestive organ; Z79.899 Other long term (current) drug therapy; Z79.82 Long term (current) use of aspirin; Z88.6 Allergy status to analgesic agent
CPT/HCPCS: 36415; 36600; 70450; 70486; 71045; 71250; 71260; 72125; 74160; 80048; 80053; 80076; 80164; 80306; 81001; 82140; 82553; 82805; 83605; 83690; 83735; 84145; 84443; 85025; 86780; 87040; 87070; 87205; 93005; 93306; 94002; 94003; 94640; 95822; 96365; 96366; 99291